=== PATIENT | female | born 1940 | race Caucasian/White ===

== ENCOUNTER 2018-03-18 11:00 | Inpatient (IN) | payer MEDICARE ==
--- NOTE | 2018-03-21 23:03 | HP ---
HISTORY AND PHYSICAL: DATE OF ADMISSION/SURGERY: 04/03/18 SURGEON: Nitza Barraza MD * (DICTATED BY ROME REY) PROCEDURE: Right total hip arthroplasty. CHIEF COMPLAINT: Right hip pain. HISTORY OF PRESENT ILLNESS: Ms. Domingo is a 77-year-old female with complaints of right hip pain. She has failed conservative management and elected to proceed with a right total hip arthroplasty which is scheduled for 04/03/18. PAST MEDICAL HISTORY: 1. High cholesterol. 2. Hypertension. 3. Diabetes, diet controlled. PAST SURGICAL HISTORY: Cataract excision from the left eye. CURRENT MEDICATIONS: 1. Simvastatin 20 mg daily. 2. Ibuprofen as needed. 3. Aspirin 81 mg daily. 4. Torsemide 5 mg half a tab daily. 5. Ramipril 10 mg 2 tabs daily. 6. Vitamin D 1000 units. ALLERGIES: To LIPITOR. FAMILY HISTORY: Diabetes and cancer. SOCIAL HISTORY: She is a 77-year-old female. She lives alone. She does not use drugs or tobacco. She uses occasional alcohol. REVIEW OF SYSTEMS: A complete 14-point review of systems is reviewed with the patient. It was positive for type 2 diabetes, diet controlled. She denies history of DVT, PE, hepatitis, HIV or anesthesia problems. PHYSICAL EXAMINATION GENERAL: She is well developed, well nourished, in no acute distress. VITAL SIGNS: She stands 5 feet 7 inches tall, weighs 235 pounds. Her blood pressure is 150/90, heart rate is 76. HEENT: Normocephalic, atraumatic. NECK: Supple. No palpable lymph nodes. PULMONARY: Lungs are clear to auscultation bilaterally. CARDIO: Regular rate and rhythm. Strong S1 and S2. ABDOMEN: Soft, nontender, nondistended. NEUROLOGIC: She is alert and oriented x3. Cranial nerves II through XII are intact. MUSCULOSKELETAL: Right lower extremity, the skin is intact. There are no open wounds or abrasions. She walks with an antalgic type gait favoring her right hip. She has decreased internal and external rotation of the right hip. She has 2+ dorsalis pedis pulses and intact sensation. Her lower extremity muscle groups strengths are intact at 5/5. ASSESSMENT AND PLAN: Ms. Domingo is a 77-year-old female with complaints of right hip pain. She has failed conservative management and elected to proceed with a right total hip arthroplasty which is scheduled for 04/03/[address] Barraza discussed the risks and benefits of the surgery at today's visit and all of her questions were answered. She will follow up with Dr. Barraza 2 weeks after the surgery. ROME REY [id number]/[facility] #: [id number] [place]
[2018-04-02] MEDS ORDERED: Buffered Lidocaine 0.9% SYRIN* 5 ML/SYR SYRINGE INTRADERM ONE (10:08)
[2018-04-03] MEDS ORDERED: Morphine INJ* 2 MG/ML 1 ML CARPUJECT IV PRN (05:48)
[2018-04-03] MEDS ORDERED: Naloxone* 0.4 MG/ML 1 ML VIAL IV PRN (05:48)
[2018-04-03] MEDS ORDERED: fentaNYL* 50 MCG/ML 2 ML VIAL (100 MCG VIAL) IV PRN (05:48)
[2018-04-03] MEDS ORDERED: Scopolamine 1.5 mg* PATCH TRANSDERM PRN (05:48)
[2018-04-03] MEDS ORDERED: PROCHLORPERAZINE INJ 5 MG/ML 2 ML VIAL IV PRN (05:48)
[2018-04-03] MEDS ORDERED: oxyCODONE/Acetamin 5/325 MG* TAB PO PRN (05:48)
[2018-04-03] MEDS ORDERED: DiMENhydriNATE IV* 50 MG/ML VIAL IV PUSH PRN (05:48)
[2018-04-03] MEDS ORDERED: Famotidine TAB* 20 MG PO ONE (06:00)
[2018-04-03] MEDS ORDERED: Ondansetron INJ* 2 MG/ML VIAL ONE (06:00)
[2018-04-03] MEDS ORDERED: Dexamethasone TAB* 4 MG PO ONE (06:00)
[2018-04-03] MEDS ORDERED: Gabapentin CAP(*) 300 MG PO ONE (06:00)
--- OUTSIDE RECORDS SUMMARY | 2018-04-03 10:30 | XMS REPORT ---
:1940 External Reference #:[id number] Author Organization [facility] [place] Address [address] [address] Phone [phone] Care Team Providers Name Role Phone Jaimie Doshi MD Primary Care Physician Unavailable Payers Type Date Identification Numbers Payment Provider Subscriber Commercial Effective: Policy Number: [facility] (Medicare) Kemi Farrell Jose L 2015 [id number] PayID: [id number] [place] [address] [address] [place] [address] Medigap Part B Effective: Policy Number: [facility] Ins eKmi Farrell Jose L 2012 [id number] Ppo/Epo Expires: 2014 PayID: [id number] [address] [place] [address] Medigap Part B Effective: 2006 Policy Number: Medicare Kemi Farrell Jose L [id number] Expires: 2012 PayID: [id number] [address] [place] [address] Problems Date Description Provider Status Onset: 11/10/2010 Benign essential hypertension Jaimie Doshi M.D. Active Onset: 11/10/2010 Pure hypercholesterolemia Jaimie Doshi M.D. Active Onset: 03/27/2012 Type 2 diabetes mellitus Jaimie Doshi M.D. Active Onset: 11/22/2015 Essential hypertension Jaimie Doshi M.D. Active Onset: 12/24/2016 Localized, primary osteoarthritis Nitza Barraza M.D. Active Onset: 12/24/2016 Localized, primary osteoarthritis of Nitza Madi, M.D. 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[place] Cigarette Use Never Smoked Cigarettes smoked briefly as a teen ETOH Use Denies alcohol use Smoking Patient has never smoked Exercise Type/Frequency Exercises sporadically Allergies, Adverse Reactions, Alerts Date Description Reaction Status Severity Comments 02/05/2011 Lipitor active extreme fatigue 04/28/2010 No Known Drug Allergy inactive Medications Medication Date Status Form Strength Qnty SIG Indications Ordering Provider Simvastatin 02/06/ Active Tablets 20mg 90tab 1 by mouth E78.5 2017 s every day Yoana Doshi Ibuprofen 08/27/ Active Tablets 200mg 90tab 4 tablets 2010 s daily prn Yoana Doshi Aspirin 06/03/ Active Tablets DR 81mg 1 tablet 2009 by mouth Cotton, once daily M.D. Torsemide 04/28/ Active Tablets 5mg 90tab take 1/2 2009 s tablet by Cotton, mouth M.D. daily Ramipril 04/28/ Active Capsules 10mg 180ca 2 by mouth 2009 ps once daily Yoana Doshi Vitamin D / Active Capsules 1000Unit As Unknown 0000 directed Amoxicillin / Active Capsules 500mg take 4 Unknown 0000 pills, 2 g 1 hour before dental or gi procedure Diflunisal / Active Tablets 500mg 1 PO Q 8h Unknown 0000 prn dental pain Diclofenac 04/11/ Hx Gel 1% 100un apply 2-4 M25.561 Jaimie Sodium 2016 - its grams to [place], 02/05/ the knees M.D. 2018 3-4 times a day Triamcinolone 07/24/ Hx Cream 0.5% 45gm apply thin R21 Jaimie Acetonide 2015 - film twice Cotton, 12/17/ daily as M.D. 2017 needed for not more than 2 weeks Mupirocin 07/18/ Hx Ointment 2% 22uni apply thin R21 Ming 2015 - ts film of Karis, ACCOUNT MAINTENANCE REPRESENTATIVE 12/17/ ointment 2016 to the affected area(s) three times daily for 10-14 days Hydrocortisone 07/18/ Hx Cream 2.5% 60gm apply to R2Jadon Ming 2016 - affected Karis ACCOUNT MAINTENANCE REPRESENTATIVE 12/17/ area three 2017 times daily Simvastatin 02/03/ Hx Tablets 20mg 90tab (Not Jaimie 2013 - s Taking)2 Cotton, 02/04/ by mouth M.D. 2017 every day Simvastatin 10/02/ Hx Tablets 10mg 30tab take two 250.00 Jaimie 2012 - s tablets by Cotton, 02/03/ mouth at M.D. 2012 bedtime Aspir-81 04/28/ Hx Tablets DR 81mg 1 tab Jaimie 2010 - daily Cotton, 06/03/ M.D. 2009 Altoprev 03/06/ Hx Tablets ER 60mg 30tab 1 Tablet 250.00 Jaimie 2010 - 24HR s Once Daily [employer], 10/02/ At Bedtime M.D. 2011 Calcium 600 + D / Hx Tablets 600-400mg 1 po bid Unknown 0000 - -Unit 2013 Medications Administered in Office Medication Date Status Form Strength Qnty SIG Indications Ordering Provider Synvisc Or Administered Injection Bre B Synvisc-One Gilberto Sellres, Injection 1 MG PA Synvisc Or Administered Injection Nitza Synvisc-One Gilberto Barraza M.D. Injection 1 MG Synvisc Or Administered Injection Nitza Synvisc-One Gilberto Barraza M.D. Injection 1 MG Depomedrol Administered Injection Nitza 40MG Gilberto Barraza M.D. Depomedrol Administered Injection Gi 80MG 015 Liptak, RPA-C Immunizations CPT Code Status Date Vaccine Lot # [id number] Given 09/17/2017 Influenza Virus Vaccine, Quadrivalent, Split, [id number] Preservative Free 30627 Given 11/22/2015 Pneumococcal Conjugate Vaccine 13 Valent For [id number] Intramuscular Use 99334 Given 10/19/2014 Flu Vaccine Split Virus Preservative Free For [id number] Indiv 3Yr Older Q2037 Given 10/02/2012 Fluvirin Im 3Yrs And Older [id number] Q2035 Given 08/27/2011 Afluria Vaccine [id number] 65091 Given 10/31/2009 Tetanus And Diptheria (Td) For Adult Use Preservative Free 44441 Given 11/01/2008 Influenza Virus 3Yrs & Over 29675 Given 11/01/2008 Influenza Virus 3Yrs & Over 64753 Given 08/20/2007 Pneumonia Vaccine 85707 Given 08/20/2007 Pneumonia Vaccine 89428 Given 08/20/2007 Influenza Virus 3Yrs & Over 81392 Given 08/20/2007 Influenza Virus 3Yrs & Over Vital Signs Date Vital Result Comment 03/21/2018 Height 66 inches 5'6" Weight 229.00 lb Heart Rate 76 /min BP Systolic 150 mmHg BP Diastolic 90 mmHg Respiratory Rate 16 /min Body Temperature 98.6 F Pain Level 6 BMI (Body Mass Index) 37.0 kg/m2 02/28/2018 Weight 229.00 lb Heart Rate 88 /min BP Systolic Sitting 110 mmHg BP Diastolic Sitting 80 mmHg Body Temperature 97.9 F O2 % BldC Oximetry 98 % 02/06/2018 Weight 234.00 lb Heart Rate 98 /min BP Systolic Sitting 125 mmHg BP Diastolic Sitting 95 mmHg Body Temperature 97.9 F O2 % BldC Oximetry 98 % 02/05/2018 Weight 234.00 lb Heart Rate 88 /min BP Systolic 148 mmHg BP Diastolic 92 mmHg Body Temperature 97.8 F 09/17/2017 Weight 235.50 lb Heart Rate 86 /min BP Systolic 130 mmHg BP Diastolic 80 mmHg O2 % BldC Oximetry 97 % 07/09/2017 Weight 237.50 lb Heart Rate 96 /min BP Systolic 126 mmHg BP Diastolic 80 mmHg Body Temperature 98.1 F O2 % BldC Oximetry 97 % 04/11/2017 Weight 239.00 lb Heart Rate 88 /min BP Systolic Sitting 144 mmHg BP Diastolic Sitting 88 mmHg O2 % BldC Oximetry 96 % 03/04/2017 Height 66 inches 5'6" Weight 245.00 lb Heart Rate 99 /min BP Systolic 137 mmHg BP Diastolic 81 mmHg Body Temperature 96.8 F BMI (Body Mass Index) 39.5 kg/m2 02/25/2017 Height 66 inches 5'6" Weight 245.00 lb BP Systolic 142 mmHg BP Diastolic 88 mmHg Body Temperature 98.1 F BMI (Body Mass Index) 39.5 kg/m2 02/18/2017 Height 66 inches 5'6" Weight 245.00 lb Heart Rate 92 /min BP Systolic 146 mmHg BP Diastolic 80 mmHg Body Temperature 98.3 F Pain Level 3 BMI (Body Mass Index) 39.5 kg/m2 02/06/2017 Height 64 inches 5'4" Weight 245.00 lb BP Systolic Sitting 136 mmHg BP Diastolic Sitting 86 mmHg Respiratory Rate 18 /min Pain Level 7 BMI (Body Mass Index) 42.0 kg/m2 12/24/2016 Height 64 inches 5'4" Weight 245.00 lb Heart Rate 95 /min BP Systolic 190 mmHg BP Diastolic 101 mmHg BMI (Body Mass Index) 42.0 kg/m2 12/17/2016 Weight 245.00 lb Heart Rate 76 /min BP Systolic 140 mmHg BP Diastolic 90 mmHg Body Temperature 98.0 F O2 % BldC Oximetry 98 % 07/24/2016 Weight 248.00 lb Heart Rate 90 /min BP Systolic 138 mmHg BP Diastolic 84 mmHg Respiratory Rate 15 /min Body Temperature 98.3 F O2 % BldC Oximetry 97 % 07/18/2016 Weight 249.00 lb Heart Rate 98 /min BP Systolic Sitting 136 mmHg BP Diastolic Sitting 80 mmHg Body Temperature 98.5 F O2 % BldC Oximetry 96 % 06/12/2016 Height 63.75 inches 5'3.75" Weight 245.00 lb Heart Rate 102 /min BP Systolic 128 mmHg BP Diastolic 78 mmHg BP Systolic Sitting 140 mmHg BP Diastolic Sitting 90 mmHg Body Temperature 97.6 F O2 % BldC Oximetry 98 % BMI (Body Mass Index) 42.4 kg/m2 11/22/2015 Height 66 inches 5'6" Weight 247.50 lb Heart Rate 103 /min BP Systolic Sitting 126 mmHg BP Diastolic Sitting 78 mmHg Body Temperature 97.3 F O2 % BldC Oximetry 98 % BMI (Body Mass Index) 39.9 kg/m2 01/24/2015 Height 66 inches 5'6" Weight 256.00 lb Pain Level 5 BMI (Body Mass Index) 41.3 kg/m2 11/22/2014 Height 66 inches 5'6" Weight 256.00 lb Heart Rate 85 /min BP Systolic 150 mmHg BP Diastolic 80 mmHg BMI (Body Mass Index) 41.3 kg/m2 10/19/2014 Height 63.25 inches 5'3.25" Weight 253.50 lb Heart Rate 99 /min BP Systolic Sitting 126 mmHg BP Diastolic Sitting 64 mmHg Body Temperature 97.8 F O2 % BldC Oximetry 96 % BMI (Body Mass Index) 44.5 kg/m2 04/13/2014 Height 63.25 inches 5'3.25" Weight 251.00 lb Heart Rate 80 /min BP Systolic Sitting 124 mmHg BP Diastolic Sitting 74 mmHg Body Temperature 98.4 F BMI (Body Mass Index) 44.1 kg/m2 09/15/2013 Weight 244.00 lb Heart Rate 82 /min BP Systolic Sitting 132 mmHg BP Diastolic Sitting 80 mmHg 03/16/2013 Height 63.25 inches 5'3.25" Weight 250.00 lb Heart Rate 82 /min BP Systolic Sitting 134 mmHg BP Diastolic Sitting 84 mmHg BMI (Body Mass Index) 43.9 kg/m2 10/02/2012 Height 64.25 inches 5'4.25" Weight 246.00 lb Heart Rate 80 /min BP Systolic Sitting 134 mmHg BP Diastolic Sitting 80 mmHg BMI (Body Mass Index) 41.9 kg/m2 05/29/2012 Height 64.25 inches 5'4.25" Weight 244.00 lb Heart Rate 84 /min BP Systolic Sitting 146 mmHg 132/84 BP Diastolic Sitting 70 mmHg 132/84 BMI (Body Mass Index) 41.6 kg/m2 03/27/2012 Height 64.25 inches 5'4.25" Weight 251.00 lb Heart Rate 76 /min BP Systolic Sitting 124 mmHg BP Diastolic Sitting 66 mmHg BMI (Body Mass Index) 42.7 kg/m2 03/03/2012 Height 64.25 inches 5'4.25" Weight 257.00 lb Heart Rate 74 /min BP Systolic Sitting 134 mmHg BP Diastolic Sitting 80 mmHg BMI (Body Mass Index) 43.8 kg/m2 08/27/2011 Height 64.25 inches 5'4.25" Weight 249.00 lb Heart Rate 72 /min BP Systolic Sitting 132 mmHg BP Diastolic Sitting 80 mmHg BMI (Body Mass Index) 42.4 kg/m2 05/07/2011 Height 64.25 inches 5'4.25" Weight 244.00 lb Heart Rate 72 /min BP Systolic Sitting 120 mmHg BP Diastolic Sitting 76 mmHg BMI (Body Mass Index) 41.6 kg/m2 02/05/2011 Weight 266.50 lb Heart Rate 84 /min BP Systolic 130 mmHg large cuff BP Diastolic 82 mmHg large cuff 06/05/2010 Weight 266.00 lb Heart Rate 68 /min BP Systolic 130 mmHg BP Diastolic 90 mmHg 05/01/2010 Weight 261.00 lb Heart Rate 88 /min BP Systolic 134 mmHg BP Diastolic 82 mmHg Results Test Date Test Result H/L Range Note Laboratory test finding 02/06/2018 Hemoglobin A1c 6.6 5-7 Lipid Profile (Trig/Chol/HDL) 09/12/2017 Triglycerides 119 mg/dL 1 Cholesterol 244 mg/dL 2 HDL Cholesterol 50.9 mg/dL 3 LDL Cholesterol 169 mg/dL 4 Comp Metabolic Panel 09/12/2017 Sodium 137 mmol/L 133-145 Potassium 4.7 mmol/L 3.5-5.0 Chloride 103 mmol/L 101-111 Co2 Carbon Dioxide 29 mmol/L 22-32 Anion Gap 5 mmol/L 2-11 Glucose 101 mg/dL High 70-100 Blood Urea Nitrogen 17 mg/dL 6-24 Creatinine 0.92 mg/dL 0.51-0.95 BUN/Creatinine Ratio 18.5 8-20 Calcium 10.2 mg/dL 8.6-10.3 Total Protein 6.9 g/dL 6.4-8.9 Albumin 4.0 g/dL 3.2-5.2 Globulin 2.9 g/dL 2-4 Albumin/Globulin Ratio 1.4 1-3 Total Bilirubin 1.30 mg/dL High 0.2-1.0 Alkaline Phosphatase 103 U/L 34-104 Alt 11 U/L 7-52 Ast 14 U/L 13-39 Egfr Non- 59.5 >60 Egfr 76.5 >60 5 Urine Microalbumin Random 09/12/2017 Ur Microalbumin (mg/L) 34.4 mg/L Urine Creatinine 98.60 mg/dL Urine Microalbumin/Creatinine 34.8 ug/mg High <31 CBC Auto Diff 09/12/2017 White Blood Count 8.3 10^3/uL 3.5-10.8 Red Blood Count 4.79 10^6/uL 4.0-5.4 Hemoglobin 13.0 g/dL 12.0-16.0 Hematocrit 40 % 35-47 Mean Corpuscular Volume 84 fL 80-97 Mean Corpuscular Hemoglobin 27 pg 27-31 Mean Corpuscular HGB Conc 32 g/dL 31-36 Red Cell Distribution Width 15 % 10.5-15 Platelet Count 290 10^3/uL 150-450 Mean Platelet Volume 10 um3 7.4-10.4 Abs Neutrophils 5.1 10^3/uL 1.5-7.7 Abs Lymphocytes 2.1 10^3/uL 1.0-4.8 Abs Monocytes 0.6 10^3/uL 0-0.8 Abs Eosinophils 0.3 10^3/uL 0-0.6 Abs Basophils 0.1 10^3/uL 0-0.2 Abs Nucleated RBC 0 10^3/uL Granulocyte % 61.8 % 38-83 Lymphocyte % 25.7 % 25-47 Monocyte % 7.5 % 1-9 Eosinophil % 4.1 % 0-6 Basophil % 0.9 % 0-2 Nucleated Red Blood Cells % 0 Laboratory test finding 07/09/2017 Hemoglobin A1c 6.2 5-7 Lipid Profile (Trig/Chol/HDL) 12/03/2016 Triglycerides 125 mg/dL 6 Cholesterol 229 mg/dL 7 HDL Cholesterol 50.2 mg/dL 8 LDL Cholesterol 154 mg/dL 9 Comp Metabolic Panel 12/03/2016 Sodium 140 mmol/L 133-145 Potassium 4.4 mmol/L 3.5-5.0 Chloride 105 mmol/L 101-111 Co2 Carbon Dioxide 30 mmol/L 22-32 Anion Gap 5 mmol/L 2-11 Glucose 99 mg/dL 70-100 Blood Urea Nitrogen 21 mg/dL 6-24 Creatinine 1.01 mg/dL High 0.51-0.95 BUN/Creatinine Ratio 20.8 High 8-20 Calcium 10.4 mg/dL High 8.6-10.3 Total Protein 6.9 g/dL 6.4-8.9 Albumin 4.1 g/dL 3.2-5.2 Globulin 2.8 g/dL 2-4 Albumin/Globulin Ratio 1.5 1-3 Total Bilirubin 1.10 mg/dL High 0.2-1.0 Alkaline Phosphatase 101 U/L 34-104 Alt 12 U/L 7-52 Ast 13 U/L 13-39 Egfr Non- 53.4 >60 Egfr 68.7 >60 10 Laboratory test 12/03/2016 Hemoglobin A1c 6.3 % High Less than 6.0 11 finding (Glyco HGB) Urine Microalbumin 12/03/2016 Urine Creatinine 68.36 mg/dL Random Ur Microalbumin (mg/L) 50.8 mg/L Urine Microalbumin/Creatinine 74.3 ug/mg High <31 Comp Metabolic Panel 06/06/2016 Sodium 138 mmol/L 133-145 Potassium 4.0 mmol/L 3.5-5.0 Chloride 104 mmol/L 101-111 Co2 Carbon Dioxide 29 mmol/L 22-32 Anion Gap 5 mmol/L 2-11 Glucose 97 mg/dL 70-100 Blood Urea Nitrogen 18 mg/dL 6-24 Creatinine 1.01 mg/dL High 0.51-0.95 BUN/Creatinine Ratio 17.8 8-20 Calcium 9.5 mg/dL 8.6-10.3 Total Protein 6.6 g/dL 6.4-8.9 Albumin 3.8 g/dL 3.2-5.2 Globulin 2.8 g/dL 2-4 Albumin/Globulin Ratio 1.4 1-3 Total Bilirubin 1.20 mg/dL High 0.2-1.0 Alkaline Phosphatase 115 U/L High 34-104 Alt 11 U/L 7-52 Ast 13 U/L 13-39 Egfr Non- 53.6 >60 Egfr 68.9 >60 12 Laboratory test 06/06/2016 Hemoglobin A1c (Glyco 6.3 % High Less than 6.0 13 finding HGB) Lipid Profile 11/16/2015 Triglycerides 106 mg/dL 14 (Trig/Chol/HDL) Cholesterol 161 mg/dL 15 HDL Cholesterol 45.4 mg/dL 16 LDL Cholesterol 94 mg/dL 17 Comp Metabolic Panel 11/16/2015 Sodium 137 mmol/L 133-145 Potassium 4.0 mmol/L 3.5-5.0 Chloride 102 mmol/L 101-111 Co2 Carbon Dioxide 27 mmol/L 22-32 Anion Gap 8 mmol/L 2-11 Glucose 94 mg/dL 70-100 Blood Urea Nitrogen 20 mg/dL 6-24 Creatinine 0.99 mg/dL High 0.51-0.95 BUN/Creatinine Ratio 20.2 High 8-20 Calcium 10.1 mg/dL 8.6-10.3 Total Protein 7.1 g/dL 6.4-8.9 Albumin 4.2 g/dL 3.2-5.2 Globulin 2.9 g/dL 2-4 Albumin/Globulin Ratio 1.4 1-3 Total Bilirubin 1.40 mg/dL High 0.2-1.0 Alkaline Phosphatase 109 U/L High 34-104 Alt 12 U/L 7-52 Ast 15 U/L 13-39 Egfr Non- 54.8 >60 Egfr 70.5 >60 18 Laboratory test 11/16/2015 Hemoglobin A1c (Glyco 6.2 % High Less than 6.0 19 finding HGB) Urine Microalbumin 11/16/2015 Ur Microalbumin 24.0 mg/L Random (mg/L) Urine Creatinine 129.09 mg/dL Urine Microalbumin/Creatinine 18.5 ug/mg <31 Comp Metabolic Panel 10/06/2014 Sodium 137 mmol/L 133-145 20 Potassium 3.7 mmol/L 3.5-5.0 20, 21 Chloride 104 mmol/L 101-111 20 Co2 Carbon Dioxide 27 mmol/L 22-32 20 Anion Gap 6 mmol/L 2-11 20 Glucose 97 mg/dL 70-100 20 Blood Urea Nitrogen 23 mg/dL 6-24 20 Creatinine 0.99 mg/dL High 0.51-0.95 20 BUN/Creatinine Ratio 23.2 High 8-20 20 Calcium 9.9 mg/dL 8.6-10.3 20 Total Protein 7.3 g/dL 6.4-8.9 20 Albumin 4.1 g/dL 3.2-5.2 20 Globulin 3.2 g/dL 2-4 20 Albumin/Globulin Ratio 1.3 1-3 20 Total Bilirubin 1.20 mg/dL High 0.2-1.0 20 Alkaline Phosphatase 105 U/L High 34-104 20 Alt 11 U/L 7-52 20 Ast 16 U/L 13-39 20 Egfr Non- 55.0 >60 20 Egfr 70.7 >60 20, 22 Lipid Profile (Trig/Chol/HDL) 10/06/2014 Triglycerides 103 mg/dL 20, 23 Cholesterol 151 mg/dL 20, 24 HDL Cholesterol 43.2 mg/dL 20, 25 LDL Cholesterol 87 mg/dL 20, 26 Laboratory test 10/06/2014 TSH (Thyroid 2.15 IU/mL 0.34-5.60 20, 27 finding Stimulating Horm) Hemoglobin A1c 6.5 % High Less than 6.0 20, 28 Urine Microalbumin Random 10/06/2014 Ur Microalbumin (mg/L) 18.0 mg/L Urine Creatinine 136.65 mg/dL Urine Microalbumin/Creatinine 13.1 Less Than 31 Laboratory test finding 04/13/2014 Hemoglobin A1c 6.1 5-7 Laboratory test finding 09/09/2013 Hemoglobin A1c 6.4 % High Less than 6.0 29 Comp Metabolic Panel 09/09/2013 Sodium 138 mmol/L 133-145 Potassium 4.0 mmol/L 3.5-5.0 Chloride 104 mmol/L 101-111 Co2 Carbon Dioxide 29.0 mmol/L 22-32 Anion Gap 5.0 mmol/L 2-11 Glucose 111 mg/dL High 70-100 Blood Urea Nitrogen 22 mg/dL 6-24 Creatinine 1.10 mg/dL 0.50-1.40 BUN/Creatinine Ratio 20.0 8-20 Calcium 10.5 mg/dL High 8.1-9.9 Total Protein 6.3 g/dL 6.2-8.1 Albumin 4.1 g/dL 3.2-5.2 Globulin 2.2 g/dL 2-4 Albumin/Globulin Ratio 1.9 1-3 Total Bilirubin 1.5 mg/dL 0.4-1.5 Alkaline Phosphatase 109 U/L 30-110 Alt 15 U/L 14-54 Ast 20 U/L 12-42 Egfr Non- 49.0 >60 Egfr 63.0 >60 30 Urine Microalbumin Random 09/09/2013 Ur Microalbumin (mg/L) 18.0 mg/L 31 Urine Creatinine 170.2 mg/dL Urine Microalbumin/Creatinine 10.6 Less Than 31 Lipid Profile (Trig/Chol/HDL) 09/09/2013 Triglycerides 97 mg/dL 40-200 Cholesterol 168 mg/dL Less than 200 HDL Cholesterol 52 mg/dL 40-60 32 Cholesterol/HDL Ratio 3.2 Average 1-4.44 LDL Cholesterol 96.6 Less Than 100 33 Pthi 09/09/2013 PTH Intact 7.4 pmol/L 1.3-9.0 Calcium (PTH Intact) 10.4 mg/dL High 8.1-9.9 Laboratory test finding 03/11/2013 Hemoglobin A1c 6.4 % High Less than 34 6.0 Laboratory test finding 03/11/2013 TSH (Thyroid 2.13 miu/mL 0.34-5.60 Stimulating Horm) Protein Electrophoresis 03/11/2013 Albumin (Pep) 3.57 g/dL 3.0-4.35 Serum Alpha 1 Globulins 0.20 g/dL 0.09-0.33 Alpha 2 Globulin 0.91 g/dL 0.59-1.18 Beta Globulin 0.78 g/dL 0.68-1.02 Gamma Globulin 1.45 g/dL 0.76-1.60 Albumin % (Pep) 51.7 % 46-63 Alpha 1 Globulins % 2.9 % 1.2-5.3 Alpha 2 Globulin % 13.2 % 9-17 Beta Globulin % 11.3 % 10-16 Gamma Globulin % 21.0 % 12-22 Albumin/Globulin Ratio 1.1 0.9-2.0 Total Protein (Pep) 6.9 g/dL 6.2-8.1 Spep Comments (SEE NOTE) 35 Pthi 03/11/2013 PTH Intact 7.3 pmol/L 1.3-9.0 Calcium (PTH Intact) 10.2 mg/dL High 8.1-9.9 Lipid Profile (Trig/Chol/HDL) 01/14/2013 Triglycerides 96 mg/dL 40-200 Cholesterol 170 mg/dL Less than 200 HDL Cholesterol 49 mg/dL 40-60 36 Cholesterol/HDL Ratio 3.5 Average 1-4.44 LDL Cholesterol 101.8 mg/dL High Less Than 100 37 Comp Metabolic Panel 01/14/2013 Sodium 140 mmol/L 133-145 Potassium 4.6 mmol/L 3.5-5.0 Chloride 102 mmol/L 101-111 Co2 Carbon Dioxide 29.0 mmol/L 22-32 Anion Gap 9.0 mmol/L 2-11 Glucose 105 mg/dL High 70-100 Blood Urea Nitrogen 23 mg/dL 6-24 Creatinine 1.00 mg/dL 0.50-1.40 BUN/Creatinine Ratio 23.0 High 8-20 Calcium 10.7 mg/dL High 8.1-9.9 Total Protein 6.7 g/dL 6.2-8.1 Albumin 4.0 g/dL 3.2-5.2 Globulin 2.7 g/dL 2-4 Albumin/Globulin Ratio 1.5 1-3 Total Bilirubin 1.2 mg/dL 0.4-1.5 Alkaline Phosphatase 110 U/L 30-110 Alt 36 U/L 14-54 Ast 28 U/L 12-42 Egfr Non- 54.7 >60 Egfr 70.3 >60 38 Urine Microalbumin Random 09/30/2012 Ur Microalbumin (Mg/L) 12.0 mg/L 39 Urine Creatinine 78.5 mg/dL Urine Microalbumin/Creatinine 15.3 UG/MG Less Than 31 Lipid Profile (Trig/Chol/HDL) 09/30/2012 Triglycerides 117 mg/dL 40-200 Cholesterol 173 mg/dL Less than 200 HDL Cholesterol 47 mg/dL 40-60 40 Cholesterol/HDL Ratio 3.7 AVERAGE 1-4.44 LDL Cholesterol 102.6 mg/dL High Less Than 100 41 Comp Metabolic Panel 09/30/2012 Sodium 137 mmol/L 133-145 Potassium 4.7 mmol/L 3.5-5.0 Chloride 106 mmol/L 101-111 Co2 Carbon Dioxide 28.0 mmol/L 22-32 Anion Gap 3.0 mmol/L 2-11 Glucose 100 mg/dL 70-100 Blood Urea Nitrogen 21 mg/dL 6-24 Creatinine 1.00 mg/dL 0.50-1.40 BUN/Creatinine Ratio 21.0 High 8-20 Calcium 10.2 mg/dL High 8.1-9.9 Total Protein 6.1 GM/DL Low 6.2-8.1 Albumin 3.8 GM/DL 3.2-5.2 Globulin 2.3 GM/DL 2-4 Albumin/Globulin Ratio 1.7 1-3 Total Bilirubin 1.2 mg/dL High 0.1-1.0 42 Alkaline Phosphatase 108 U/L 30-110 Alt 16 U/L 14-54 Ast 18 U/L 12-42 Egfr Non- 54.8 >60 Egfr 70.5 >60 43 Laboratory test finding 09/30/2012 Hemoglobin A1c 6.5 % High Less than 6.0 44 Order 05/29/2012 A1c 6.4 Laboratory test finding 03/03/2012 Hemoglobin A1c 6.7 % High Less Than 6.0 45 Comp Metabolic Panel 03/03/2012 Sodium 138 mmol/L 135-145 Potassium 4.4 mmol/L 3.5-5.0 Chloride 104 mmol/L 101-111 Co2 (Carbon Dioxide) 29.0 mmol/L 22-32 Anion Gap 5.0 mmol/L 2-11 46 Glucose 91 mg/dL 70-100 BUN 23 mg/dL 6-24 Creatinine 1.0 mg/dL 0.50-1.40 One Over Creatinine 1.00 BUN/Creatinine Ratio 23.0 High 8-20 Calcium 9.6 mg/dL 8.1-9.9 Total Protein 6.5 GM/DL 6.2-8.1 Albumin 3.9 GM/DL 3.2-5.2 Globulin 2.6 GM/DL 2-4 Albumin/Globulin Ratio 1.5 1-3 Bilirubin Total 1.2 mg/dL 0.4-1.5 47 Alkaline Phosphatase 108 U/L 30-110 Alt (SGPT) 17 U/L 14-54 Ast (Sgot) 15 U/L 12-42 eGFR Non- 54.8 > 60 eGFR 70.5 > 60 48 Vitamin D, 25 Hydroxy 10/16/2011 25-Hydroxy Vitamin D2 <4.0 ng/mL () 25-Hydroxy Vitamin D3 35 ng/mL () 25-Hydroxy Vitamin D Total 35 ng/mL () 49 PTH Intact, Inc Total Calcium 10/16/2011 PTH Intact 7.2 PMOL/L 1.3-9.3 Calcium For Pthi 10.3 mg/dL High 8.1-9.9 50 Comp Metabolic Panel 10/16/2011 Sodium 137 mmol/L 135-145 Potassium 4.4 mmol/L 3.5-5.0 Chloride 102 mmol/L 101-111 Co2 (Carbon Dioxide) 27.0 mmol/L 22-32 Anion Gap 8.0 mmol/L 2-11 51 Glucose 105 mg/dL High 70-100 BUN 19 mg/dL 6-24 Creatinine 1.0 mg/dL 0.50-1.40 One Over Creatinine 1.00 BUN/Creatinine Ratio 19.0 8-20 Calcium 10.5 mg/dL High 8.1-9.9 Total Protein 6.9 GM/DL 6.2-8.1 Albumin 3.9 GM/DL 3.2-5.2 Globulin 3.0 GM/DL 2-4 Albumin/Globulin Ratio 1.3 1-3 Bilirubin Total 1.4 mg/dL 0.4-1.5 52 Alkaline Phosphatase 108 U/L 30-110 Alt (SGPT) 16 U/L 14-54 Ast (Sgot) 19 U/L 12-42 eGFR Non- 54.8 > 60 eGFR 70.5 > 60 53 Lipid Profile (Trig/Chol/HDL) 10/16/2011 Triglyceride 91 mg/dL 40-200 Cholesterol 183 mg/dL Less Than 200 54 High Density Lipoprotein 53 mg/dL 40-60 55 Cholesterol/HDL Ratio 3.45 AVERAGE 1-4.44 Low Density Lipoprotein 112 mg/dL High Less Than 100 56 Vitamin D, 25 Hydroxy 05/01/2011 25-Hydroxy Vitamin D2 <4.0 ng/mL () 25-Hydroxy Vitamin D3 35 ng/mL () 25-Hydroxy Vitamin D Total 35 ng/mL () 57 Laboratory test finding 05/01/2011 Hemoglobin A1c 6.4 % High Less Than 6.0 58 PTH Intact, Inc Total 05/01/2011 PTH Intact 7.2 PMOL/L 1.3-9.3 Calcium Calcium For Pthi 10.4 mg/dL High 8.1-9.9 59 Lipid Profile (Trig/Chol/HDL) 05/01/2011 Triglyceride 95 mg/dL 40-200 Cholesterol 154 mg/dL Less Than 200 60 High Density Lipoprotein 47 mg/dL 40-60 61 Cholesterol/HDL Ratio 3.28 AVERAGE 1-4.44 Low Density Lipoprotein 88 mg/dL Less Than 100 62 Comp Metabolic Panel 05/01/2011 Sodium 141 mmol/L 135-145 Potassium 4.8 mmol/L 3.5-5.0 Chloride 106 mmol/L 101-111 Co2 (Carbon Dioxide) 28.0 mmol/L 22-32 Anion Gap 7.0 mmol/L 2-11 63 Glucose 107 mg/dL High 70-100 BUN 19 mg/dL 6-24 Creatinine 1.00 mg/dL 0.50-1.40 One Over Creatinine 1.00 BUN/Creatinine Ratio 19.0 8-20 Calcium 10.3 mg/dL High 8.1-9.9 Total Protein 6.5 GM/DL 6.2-8.1 Albumin 3.9 GM/DL 3.2-5.2 Globulin 2.6 GM/DL 2-4 Albumin/Globulin Ratio 1.5 1-3 Bilirubin Total 1.5 mg/dL 0.4-1.5 64 Alkaline Phosphatase 98 U/L 30-110 Alt (SGPT) 14 U/L 14-54 Ast (Sgot) 17 U/L 12-42 eGFR Non- 55.0 > 60 eGFR 70.7 > 60 65 Lipid Profile (Trig/Chol/HDL) 11/07/2010 Triglyceride 128 mg/dL 40-200 Cholesterol 173 mg/dL Less Than 200 66 High Density Lipoprotein 42 mg/dL 40-60 67 Cholesterol/HDL Ratio 4.12 AVERAGE 1-4.44 Low Density Lipoprotein 105 mg/dL High Less Than 100 68 Comp Metabolic Panel 11/07/2010 Sodium 139 mmol/L 135-145 Potassium 4.8 mmol/L 3.5-5.0 Chloride 105 mmol/L 101-111 Co2 (Carbon Dioxide) 29.0 mmol/L 22-32 Anion Gap 5.0 mmol/L 2-11 69 Glucose 102 mg/dL High 70-100 BUN 18 mg/dL 6-24 Creatinine 1.00 mg/dL 0.50-1.40 One Over Creatinine 1.00 BUN/Creatinine Ratio 18.0 8-20 Calcium 10.6 mg/dL High 8.1-9.9 Total Protein 6.9 GM/DL 6.2-8.1 Albumin 4.0 GM/DL 3.2-5.2 Globulin 2.9 GM/DL 2-4 Albumin/Globulin Ratio 1.4 1-3 Bilirubin Total 1.3 mg/dL 0.4-1.5 70 Alkaline Phosphatase 107 U/L 30-110 Alt (SGPT) 16 U/L 14-54 Ast (Sgot) 17 U/L 12-42 eGFR Non- 58.4 > 60 eGFR 70.7 > 60 71 Basic Metabolic Panel 05/25/2010 Sodium 140 mmol/L 135-145 Potassium 4.5 mmol/L 3.5-5.0 Chloride 106 mmol/L 101-111 Co2 (Carbon Dioxide) 30.0 mmol/L 22-32 Anion Gap 4.0 mmol/L 2-11 72 Glucose 86 mg/dL 70-100 73 BUN 25 mg/dL High 6-24 Creatinine 0.99 mg/dL 0.50-1.40 One Over Creatinine 1.00 BUN/Creatinine Ratio 25.3 High 8-20 Calcium 10.1 mg/dL High 8.1-9.9 74 eGFR Non- 59.3 > 60 eGFR 71.7 > 60 75 1 Desirable: <150 Borderline High: 150-199 High: 200-499 Very High: >500 2 Desirable: <200 Borderline High: 200-239 High: >239 3 Low: <40 Desirable: 40-60 High: >60 4 Desirable: <100 Near Optimal: 100-129 Borderline High: 130-159 High: 160-189 Very High: >189 5 Because ethnic data is not always readily available, this report includes an eGFR for both -Americans and non- Americans. The National Kidney Disease Education Program (NKDEP) does not endorse the use of the MDRD equation for patients that are not between the ages of 18 and 70, are , have extremes of body size, muscle mass, or nutritional status, or are non- or non-. According to the National Kidney Foundation, irrespective of diagnosis, the stage of the disease is based on the level of kidney function: Stage Description GFR(mL/min/1.73 m(2)) 1 Kidney damage with normal or decreased GFR 90 2 Kidney damage with mild decrease in GFR 60-89 3 Moderate decrease in GFR 30-59 4 Severe decrease in GFR 15-29 5 Kidney failure <15 (or dialysis) 6 Desirable <150 Borderline high 150-199 High 200-499 Very High >500 7 Desirable <200 Borderline high 200-239 High >239 8 Low <40 Desirable: 40-60 High: >60 9 Desirable: <100 mg/dL Near Optimal: 100-129 mg/dL Borderline High: 130-159 mg/dL High: 160-189 mg/dL Very High: >189 mg/dL 10 Because ethnic data is not always readily available, this report includes an eGFR for both -Americans and non- Americans. The National Kidney Disease Education Program (NKDEP) does not endorse the use of the MDRD equation for patients that are not between the ages of 18 and 70, are , have extremes of body size, muscle mass, or nutritional status, or are non- or non-. According to the National Kidney Foundation, irrespective of diagnosis, the stage of the disease is based on the level of kidney function: Stage Description GFR(mL/min/1.73 m(2)) 1 Kidney damage with normal or decreased GFR 90 2 Kidney damage with mild decrease in GFR 60-89 3 Moderate decrease in GFR 30-59 4 Severe decrease in GFR 15-29 5 Kidney failure <15 (or dialysis) 11 Therapeutic target for the treatment of diabetes Mellitus patients is <7% HBA1C, and in selective patients <6.0%.Please refer to [place] [employer] Diabetic care guidelines for further information. 12 Because ethnic data is not always readily available, this report includes an eGFR for both -Americans and non- Americans. The National Kidney Disease Education Program (NKDEP) does not endorse the use of the MDRD equation for patients that are not between the ages of 18 and 70, are , have extremes of body size, muscle mass, or nutritional status, or are non- or non-. According to the National Kidney Foundation, irrespective of diagnosis, the stage of the disease is based on the level of kidney function: Stage Description GFR(mL/min/1.73 m(2)) 1 Kidney damage with normal or decreased GFR 90 2 Kidney damage with mild decrease in GFR 60-89 3 Moderate decrease in GFR 30-59 4 Severe decrease in GFR 15-29 5 Kidney failure <15 (or dialysis) 13 Therapeutic target for the treatment of diabetes Mellitus patients is <7% HBA1C, and in selective patients <6.0%.Please refer to [place] [employer] Diabetic care guidelines for further information. 14 Desirable <150 Borderline high 150-199 High 200-499 Very High >500 15 Desirable <200 Borderline high 200-239 High >239 16 Low <40 Desirable: 40-60 High: >60 17 Desirable: <100 mg/dL Near Optimal: 100-129 mg/dL Borderline High: 130-159 mg/dL High: 160-189 mg/dL Very High: >189 mg/dL 18 Because ethnic data is not always readily available, this report includes an eGFR for both -Americans and non- Americans. The National Kidney Disease Education Program (NKDEP) does not endorse the use of the MDRD equation for patients that are not between the ages of 18 and 70, are , have extremes of body size, muscle mass, or nutritional status, or are non- or non-. According to the National Kidney Foundation, irrespective of diagnosis, the stage of the disease is based on the level of kidney function: Stage Description GFR(mL/min/1.73 m(2)) 1 Kidney damage with normal or decreased GFR 90 2 Kidney damage with mild decrease in GFR 60-89 3 Moderate decrease in GFR 30-59 4 Severe decrease in GFR 15-29 5 Kidney failure <15 (or dialysis) 19 Therapeutic target for the treatment of diabetes Mellitus patients is <7% HBA1C, and in selective patients <6.0%.Please refer to [place] [employer] Diabetic care guidelines for further information. 20 FASTING 21 Potassium reference range changed effective 09/19/14 22 Because ethnic data is not always readily available, this report includes an eGFR for both -Americans and non- Americans. The National Kidney Disease Education Program (NKDEP) does not endorse the use of the MDRD equation for patients that are not between the ages of 18 and 70, are , have extremes of body size, muscle mass, or nutritional status, or are non- or non-. According to the National Kidney Foundation, irrespective of diagnosis, the stage of the disease is based on the level of kidney function: Stage Description GFR(mL/min/1.73 m(2)) 1 Kidney damage with normal or decreased GFR 90 2 Kidney damage with mild decrease in GFR 60-89 3 Moderate decrease in GFR 30-59 4 Severe decrease in GFR 15-29 5 Kidney failure <15 (or dialysis) 23 Desirable <150 Borderline high 150-199 High 200-499 Very High >500 24 Desirable <200 Borderline high 200-239 High >239 25 Low <40 Desirable: 40-60 High: >60 26 Desirable <100 Near Optimal 100-129 Borderline high 130-159 High 160-189 Very High >189 27 FASTING 28 Therapeutic target for the treatment of diabetes Mellitus patients is <7% HBA1C, and in selective patients <6.0%.Please refer to [place] [employer] Diabetic care guidelines for further information. 29 Therapeutic target for the treatment of diabetes Mellitus patients is <7% HBA1C, and in selective patients <6.0%.Please refer to [place] [employer] Diabetic care guidelines for further information. 30 Because ethnic data is not always readily available, this report includes an eGFR for both -Americans and non- Americans. The National Kidney Disease Education Program (NKDEP) does not endorse the use of the MDRD equation for patients that are not between the ages of 18 and 70, are , have extremes of body size, muscle mass, or nutritional status, or are non- or non-. According to the National Kidney Foundation, irrespective of diagnosis, the stage of the disease is based on the level of kidney function: Stage Description GFR(mL/min/1.73 m(2)) 1 Kidney damage with normal or decreased GFR 90 2 Kidney damage with mild decrease in GFR 60-89 3 Moderate decrease in GFR 30-59 4 Severe decrease in GFR 15-29 5 Kidney failure <15 (or dialysis) 31 Microalbuminuria in a random sample is defined as: Microalbumin/Creatinine ratio of 30-299 ug/mg. 32 HDL Interpretation: Undesirable: High Risk: Less than 40 mg/dL Desirable: Low Risk: Greater than 60 mg/dL 33 LDL Interpretation: Low Risk Optimal Level: LDL Less than 100 mg/dL Near or Above Optimal: LDL 100-129 mg/dL Borderline High Risk: LDL 130-159 mg/dL High Risk: LDL 160-189 mg/dL Very High Risk: LDL Greater than 189 mg/dL 34 Therapeutic target for the treatment of diabetes Mellitus patients is <7% HBA1C, and in selective patients <6.0%.Please refer to [place] [employer] Diabetic care guidelines for further information. 35 Normal serum electrophoretic pattern. 36 HDL Interpretation: Undesirable: High Risk: Less than 40 MG/DL Desirable: Low Risk: Greater than 60 MG/DL 37 LDL Interpretation: Low Risk Optimal Level: LDL Less than 100 MG/DL Near or Above Optimal: LDL 100-129 MG/DL Borderline High Risk: LDL 130-159 MG/DL High Risk: LDL 160-189 MG/DL Very High Risk: LDL Greater than 189 MG/DL 38 Because ethnic data is not always readily available, this report includes an eGFR for both -Americans and non- Americans. The National Kidney Disease Education Program (NKDEP) does not endorse the use of the MDRD equation for patients that are not between the ages of 18 and 70, are , have extremes of body size, muscle mass, or nutritional status, or are non- or non-. According to the National Kidney Foundation, irrespective of diagnosis, the stage of the disease is based on the level of kidney function: Stage Description GFR(mL/min/1.73 m(2)) 1 Kidney damage with normal or decreased GFR 90 2 Kidney damage with mild decrease in GFR 60-89 3 Moderate decrease in GFR 30-59 4 Severe decrease in GFR 15-29 5 Kidney failure <15 (or dialysis) 39 Microalbuminuria in a random sample is defined as: Microalbumin/Creatinine ratio of 30-299 ug/mg. 40 HDL Interpretation: Undesirable: High Risk: Less than 40 MG/DL Desirable: Low Risk: Greater than 60 MG/DL 41 LDL Interpretation: Low Risk Optimal Level: LDL Less than 100 MG/DL Near or Above Optimal: LDL 100-129 MG/DL Borderline High Risk: LDL 130-159 MG/DL High Risk: LDL 160-189 MG/DL Very High Risk: LDL Greater than 189 MG/DL 42 A metabolite of Naproxen, O-desmethylnaproxen, has been shown to interfere with the Jendrassik-Hopkins method for measuring total bilirubin. Samples from patients who have taken Naproxen have shown spurious elevation in total bilirubin levels. 43 Because ethnic data is not always readily available, this report includes an eGFR for both -Americans and non- Americans. The National Kidney Disease Education Program (NKDEP) does not endorse the use of the MDRD equation for patients that are not between the ages of 18 and 70, are , have extremes of body size, muscle mass, or nutritional status, or are non- or non-. According to the National Kidney Foundation, irrespective of diagnosis, the stage of the disease is based on the level of kidney function: Stage Description GFR(mL/min/1.73 m(2)) 1 Kidney damage with normal or decreased GFR 90 2 Kidney damage with mild decrease in GFR 60-89 3 Moderate decrease in GFR 30-59 4 Severe decrease in GFR 15-29 5 Kidney failure <15 (or dialysis) 44 Therapeutic target for the treatment of diabetes Mellitus patients is <7% HBA1C, and in selective patients <6.0%.Please refer to [place] [employer] Diabetic care guidelines for further information. 45 THERAPEUTIC TARGET FOR THE TREATMENT OF DIABETES MELLITUS PATIENTS IS <7% HBA1C, AND IN SELECTIVE PATIENTS <6.0%. PLEASE REFER TO [employer] DIABETIC CARE GUIDELINES FOR FURTHER INFORMATION. 46 Anion gap measurement may be of limited value in the presence of any alkalosis, especially in a combined acid base disorder. . 47 A metabolite of Naproxen, O-desmethylnaproxen, has been shown to interfere with the Jendrassik-Hopkins method for measuring total bilirubin. Samples from patients who have taken Naproxen have shown spurious elevation in total bilirubin levels. 48 Because ethnic data is not always readily available, this report includes an eGFR for both -Americans and non- Americans. The National Kidney Disease Education Program (NKDEP) does not endorse the use of the MDRD equation for patients that are not between the ages of 18 and 70, are , have extremes of body size, muscle mass, or nutritional status, or are non- or non-. According to the National Kidney Foundation, irrespective of diagnosis, the stage of the disease is based on the level of kidney function: Stage Description GFR(mL/min/1.73 m(2)) 1 Kidney damage with normal or decreased GFR 90 2 Kidney damage with mild decrease in GFR 60-89 3 Moderate decrease in GFR 30-59 4 Severe decrease in GFR 15-29 5 Kidney failure <15 (or dialysis) 49 -- REFERENCE VALUE -- 25-HYDROXY D TOTAL (D2+D3) Optimum levels in the normal population are 25-80 Test Performed by: [facility] Dpt of Lab Med and Pathology [address] [place], [place] [id number] Bench Worker Apprentice: Andrew Duncan III, M.D. 50 Please note change in reference range effective 08 . 51 Anion gap measurement may be of limited value in the presence of any alkalosis, especially in a combined acid base disorder. . 52 A metabolite of Naproxen, O-desmethylnaproxen, has been shown to interfere with the Jendrassik-Cecilia method for measuring total bilirubin. Samples from patients who have taken Naproxen have shown spurious elevation in total bilirubin levels. 53 Because ethnic data is not always readily available, this report includes an eGFR for both -Americans and non- Americans. The National Kidney Disease Education Program (NKDEP) does not endorse the use of the MDRD equation for patients that are not between the ages of 18 and 70, are , have extremes of body size, muscle mass, or nutritional status, or are non- or non-. According to the National Kidney Foundation, irrespective of diagnosis, the stage of the disease is based on the level of kidney function: Stage Description GFR(mL/min/1.73 m(2)) 1 Kidney damage with normal or decreased GFR 90 2 Kidney damage with mild decrease in GFR 60-89 3 Moderate decrease in GFR 30-59 4 Severe decrease in GFR 15-29 5 Kidney failure <15 (or dialysis) 54 CHOLESTEROL INTERPRETATION: Desirable: Less than 200 MG/DL Borderline-High Risk: 200-239 MG/DL High-Risk: 240 MG/DL and over 55 HDL INTERPRETATION: Undesirable: High Risk: Less than 40 MG/DL Desirable: Low Risk: Greater than 60 MG/DL 56 LDL INTERPRETATION: Low Risk Optimal Level: LDL Less than 100 MG/DL Near or Above Optimal: LDL 100-129 MG/DL Borderline High Risk: LDL 130-159 MG/DL High Risk: LDL 160-189 MG/DL Very High Risk: LDL Greater than 189 MG/DL 57 -- REFERENCE VALUE -- 25-HYDROXY D TOTAL (D2+D3) Optimum levels in the normal population are 25-80 Test Performed by: [facility] Dpt of Lab Med and Pathology [address] [place], [place] [phone] Bench Worker Apprentice: Andrew Duncan III, M.D. 58 THERAPEUTIC TARGET FOR THE TREATMENT OF DIABETES MELLITUS PATIENTS IS <7% HBA1C, AND IN SELECTIVE PATIENTS <6.0%. PLEASE REFER TO [employer] DIABETIC CARE GUIDELINES FOR FURTHER INFORMATION. 59 Please note change in reference range effective 08 . 60 CHOLESTEROL INTERPRETATION: Desirable: Less than 200 MG/DL Borderline-High Risk: 200-239 MG/DL High-Risk: 240 MG/DL and over 61 HDL INTERPRETATION: Undesirable: High Risk: Less than 40 MG/DL Desirable: Low Risk: Greater than 60 MG/DL 62 LDL INTERPRETATION: Low Risk Optimal Level: LDL Less than 100 MG/DL Near or Above Optimal: LDL 100-129 MG/DL Borderline High Risk: LDL 130-159 MG/DL High Risk: LDL 160-189 MG/DL Very High Risk: LDL Greater than 189 MG/DL 63 Anion gap measurement may be of limited value in the presence of any alkalosis, especially in a combined acid base disorder. . 64 A metabolite of Naproxen, O-desmethylnaproxen, has been shown to interfere with the Jendrassik-Hopkins method for measuring total bilirubin. Samples from patients who have taken Naproxen have shown spurious elevation in total bilirubin levels. 65 Because ethnic data is not always readily available, this report includes an eGFR for both -Americans and non- Americans. The National Kidney Disease Education Program (NKDEP) does not endorse the use of the MDRD equation for patients that are not between the ages of 18 and 70, are , have extremes of body size, muscle mass, or nutritional status, or are non- or non-. According to the National Kidney Foundation, irrespective of diagnosis, the stage of the disease is based on the level of kidney function: Stage Description GFR(mL/min/1.73 m(2)) 1 Kidney damage with normal or decreased GFR 90 2 Kidney damage with mild decrease in GFR 60-89 3 Moderate decrease in GFR 30-59 4 Severe decrease in GFR 15-29 5 Kidney failure <15 (or dialysis) 66 CHOLESTEROL INTERPRETATION: Desirable: Less than 200 MG/DL Borderline-High Risk: 200-239 MG/DL High-Risk: 240 MG/DL and over 67 HDL INTERPRETATION: Undesirable: High Risk: Less than 40 MG/DL Desirable: Low Risk: Greater than 60 MG/DL 68 LDL INTERPRETATION: Low Risk Optimal Level: LDL Less than 100 MG/DL Near or Above Optimal: LDL 100-129 MG/DL Borderline High Risk: LDL 130-159 MG/DL High Risk: LDL 160-189 MG/DL Very High Risk: LDL Greater than 189 MG/DL 69 Anion gap measurement may be of limited value in the presence of any alkalosis, especially in a combined acid base disorder. . 70 A metabolite of Naproxen, O-desmethylnaproxen, has been shown to interfere with the Jendrassik-Hopkins method for measuring total bilirubin. Samples from patients who have taken Naproxen have shown spurious elevation in total bilirubin levels. 71 Because ethnic data is not always readily available, this report includes an eGFR for both -Americans and non- Americans. The National Kidney Disease Education Program (NKDEP) does not endorse the use of the MDRD equation for patients that are not between the ages of 18 and 70, are , have extremes of body size, muscle mass, or nutritional status, or are non- or non-. According to the National Kidney Foundation, irrespective of diagnosis, the stage of the disease is based on the level of kidney function: Stage Description GFR(mL/min/1.73 m(2)) 1 Kidney damage with normal or decreased GFR 90 2 Kidney damage with mild decrease in GFR 60-89 3 Moderate decrease in GFR 30-59 4 Severe decrease in GFR 15-29 5 Kidney failure <15 (or dialysis) 72 Anion gap measurement may be of limited value in the presence of any alkalosis, especially in a combined acid base disorder. . 73 Note change in reference range as of 07/08/08. The change was based on recommendations from the [place] [employer]. 74 Please note change in reference range effective 08 . 75 Because ethnic data is not always readily available, this report includes an eGFR for both -Americans and non- Americans. The National Kidney Disease Education Program (NKDEP) does not endorse the use of the MDRD equation for patients that are not between the ages of 18 and 70, are , have extremes of body size, muscle mass, or nutritional status, or are non- or non-. According to the National Kidney Foundation, irrespective of diagnosis, the stage of the disease is based on the level of kidney function: Stage Description GFR(mL/min/1.73 m(2)) 1 Kidney damage with normal or decreased GFR 90 2 Kidney damage with mild decrease in GFR 60-89 3 Moderate decrease in GFR 30-59 4 Severe decrease in GFR 15-29 5 Kidney failure <15 (or dialysis) Procedures Date CPT Code Description Status Comment 02/28/2018 [id number] EKG Tracing & Completed Interpretation 01/21/2018 Diabetic Retinal Eye Exam Completed Document: 02/07/18 - Rec.Release/Arleo 03/04/[id number] Inject/Drain Joint/Bursa Major Completed 02/25/2017 Inject/Drain Joint/Bursa Major Completed 02/18/2017 Inject/Drain Joint/Bursa Major Completed 01/17/2017 Diabetic Retinal Eye Exam Completed 12/24/[id number] Inject/Drain Joint/Bursa Major Completed 07/04/2016 Mammogram Completed 06/12/2016 [id number] EKG Tracing & Completed Interpretation 01/17/2016 Diabetic Retinal Eye Exam Completed 01/17/2015 Diabetic Retinal Eye Exam Completed 11/22/201429132 Inject/Drain Joint/Bursa Major Completed 11/22/2014 [id number] Rad Exam; Both Knees, Standing Completed Ap 05/19/2014 Mammogram Completed 12/31/2013 Diabetic Retinal Eye Exam Completed 04/15/2013 Bone Mineral Density Test Completed 04/15/2013 Mammogram Completed 12/26/2012 Diabetic Retinal Eye Exam Completed 03/03/2012 [id number] EKG Tracing & Completed Interpretation 09/18/2011 Mammogram Completed 06/05/2010 [id number] EKG Tracing & Completed Interpretation 11/24/2009 Mammogram Completed 11/23/2008 Bone Mineral Density Test Completed 11/01/2008 [id number] EKG Tracing & Completed Interpretation 04/22/2000 Mammogram Completed 10/10/1999 Mammogram Completed 04/07/1999 Mammogram Completed Encounters Type Date Location Provider CPT E/M Dx Office Visit 02/28/2018 [facility] Internal Jaimie Doshi 76868 Z01.818 2:00p Medicine Migue Ford M.D. M16.11 E11.9 I10 Office Visit 02/06/2018 10:20a [facility] Internal Medicine Jaimie Doshi 78722 E11.9 Migue Ford M.D. I10 M25.551 E78.5 Office Visit 02/05/2018 10:45a [facility] M.D. 13783 M16.11 C.MMadeleine M25.551 E66.01 Office Visit 07/09/2017 10:40a [facility] Internal Medicine Jaimie Doshi 35712 E11.9 - Liliana Lees I10 M25.561 Office Visit 04/11/2017 10:20a [facility] Internal Medicine Jaimie Doshi M.D. 12453 I10 - Liliana M25.561 Office Visit 02/06/2017 11:30a [facility] M.D. 33217 M25.561 C.M.AGeorgiana M17.11 M25.551 M16.11 Office Visit 12/24/2016 1:00p [facility] M.D. 89700 M25.561 C.M.AGeorgiana M17.11 M25.551 M16.11 Office Visit 12/17/2016 11:20a [facility] Internal Medicine Jaimie Doshi 69330 E11.9 - Liliana Lees I10 M25.551 Office Visit 07/24/2016 11:20a [facility] Internal Medicine Jaimie Doshi 41721 R21 - Liliana Lees Office Visit 07/18/2016 2:20p [facility] [place] [address] R21 - Crook Office Visit 06/12/2016 11:00a [facility] Internal Medicine Jaimie Doshi 24577 Z00.00 - Liliana Lees E11.9 I10 E78.0 R74.8 Z12.31 M25.569 Office Visit 11/22/2015 10:40a [facility] Internal Medicine Jaimie Doshi 98340 E11.9 - Liliana Lees I10 E78.0 R94.5 Z12.11 Z23 Office Visit 01/24/2015 10:00a [facility] Lucia M.D. 59823 716.96 C.M.A. 715.36 Office Visit 11/22/2014 12:15p [facility] Luke, 20042 715.95 Of C.M.A. RPA-C Office Visit 10/19/2014 10:00a [facility] Internal Medicine Jaimie Doshi 99503 250.00 - Liliana Lees 719.46 401.1 v04.81 Office Visit 04/13/2014 1:40p [facility] Internal Medicine Jaimie Doshi 05379 V70.0 - Liliana Lees 250.00 272.0 V76.10 625.6 443.9 Office Visit 09/15/2013 1:00p [facility] Internal Medicine Jaimie Doshi 10676 250.00 - Liliana Lese 272.0 275.42 Office Visit 03/16/2013 1:20p [facility] Internal Medicine Jaimie Cotton, 36528 V70.0 - Crook M.D. 627.9 V76.10 250.00 275.42 Office Visit 10/02/2012 10:00a [facility] Internal Medicine Jaimie Cotton, 48812 250.00 - Crook M.D. 272.0 401.1 V04.81 Office Visit 05/29/2012 11:00a [facility] Internal Medicine Jaimie Cotton, 36792 250.00 - [place] M.D. 401.1 272.0 Office Visit 03/27/2012 10:00a [facility] Internal Medicine Jaimie Cotton, 07114 250.00 - Crook M.D. Office Visit 08/27/2011 3:40p DO Not Use Jaimie Cotton, 00829 401.1 [employer] Worker-Crook M.D. 272.0 275.42 V76.10 268.9 V04.81 Office Visit 05/07/2011 10:40a DO Not Use Jaimie Cotton, 89872 401.1 [employer] Worker-Crook M.D. 715.90 790.21 275.42 Office Visit 02/05/2011 2:00p DO Not Use Jaimie Cotton, 80695 401.1 [employer] Worker-Crook M.D. 275.42 272.0 790.21 715.90 Office Visit 06/05/2010 9:00a DO Not Use Jaimie Cotton, 31448 V72.84 [employer] Worker-Crook M.D. 401.1 Office Visit 05/01/2010 10:45a DO Not Use Jaimie Cotton, 59954 401.1 [employer] Worker-Crook M.D. 272.0 Office Visit 10/31/2009 10:45a DO Not Use RadShalonda cooper, 15666 272.0 [employer] Worker-Crook M.D. 715.90 401.1 V06.5 V70.0 Office Visit 04/27/2009 10:45a DO Not Use Shalonda Carbajal, 26708 272.0 [employer] Worker-Crook M.D. 401.1 Office Visit 11/01/2008 2:30p DO Not Use Shalonda Carbajal, 03474 V70.0 [employer] Worker-Crook M.D. 401.1 V04.81 Office Visit 08/09/2008 10:15a DO Not Use Radomski, Shalonda, 07285 275.42 [employer] Worker-Crook M.D. 715.96 401.1 Office Visit 06/02/2008 10:45a DO Not Use Radomski, Shalonda, 77588 729.81 [employer] Worker-Crook M.D. 719.46 401.1 Office Visit 03/03/2008 11:15a DO Not Use Radomski, Shalonda, 82613 268.9 [employer] Worker-Crook M.D. 401.1 Office Visit 08/20/2007 9:00a DO Not Use Radomski, Shalonda, 34966 252.00 [employer] Worker-Crook M.D. 272.0 715.96 401.1 V04.81 V03.82 Office Visit 04/16/2007 1:30p DO Not Use Radomski Shalonda, 36479 268.9 [employer] Worker-Crook M.D. 401.1 Office Visit 01/13/2007 3:15p DO Not Use [place], [place], [id number] 401.1 [employer] Worker-Crook M.D. 252.00 268.9 Office Visit 07/03/2006 9:15a DO Not Use [place]ki [place], [id number] 401.1 [employer] Worker-Crook M.D. 272.0 Plan of Care Future Appointment(s):04/03/2018 12:30 pm - Eb Jimenez PA-C at [facility]04/03/2018 12:30 pm - ROME Graves at [facility]09/23/2018 3:00 pm - Jaimie Doshi M.D. at [facility] Internal Medicine - Eanggofzl89/17/2018 12:30 pm - Nitza Barraza M.D. at [facility]03/21/2018 - Nitza Barraza M.D.M16.11 Unilateral primary osteoarthritis, right hipFollow up:Follow up: 2 weeks after [id number] Pain in right hip
[2018-04-03] MEDS ORDERED: Gabapentin CAP(*) 300 MG ONE (10:34)
[2018-04-03] MEDS ORDERED: Ondansetron ODT TAB* 4 MG ONE (10:34)
[2018-04-03] MEDS ORDERED: Dexamethasone TAB* 4 MG ONE (10:35)
[2018-04-03] MEDS ORDERED: Buffered Lidocaine 0.9% SYRIN* 5 ML/SYR SYRINGE ONE (10:35)
[2018-04-03] MEDS ORDERED: Famotidine TAB* 20 MG ONE (10:35)
[2018-04-03] MEDS ORDERED: ceFAZolin 2 GM PREMIX (*) 2 GM/50 ML BAG IVPB ONE (10:35)
[2018-04-03] MEDS ORDERED: Midazolam* 1 MG/ML 10 ML VIAL (10 MG) ONE (10:54)
[2018-04-03] MEDS ORDERED: fentaNYL* 50 MCG/ML 2 ML VIAL (100 MCG VIAL) ONE ×2 (10:54→15:36)
--- NOTE | 2018-04-03 14:49 | RAD ---
INDICATION: Right hip replacement COMPARISON: None TECHNIQUE: Single crosstable lateral view of the pelvis is obtained for femoral stem sizing FINDINGS: The acetabular cup is in place and there is a femoral stem for sizing.
[2018-04-03] MEDS ORDERED: Ketorolac INJ* 30 MG/ML 1 ML VIAL ONE (15:14)
[2018-04-03] MEDS ORDERED: Bupivacaine 0.5% PF 10 ML VIAL INJ ONE (15:15)
[2018-04-03] MEDS ORDERED: Phenylephrine INJ* 10 MG/ML 1 ML VIAL (10 MG) ONE (15:15)
[2018-04-03] MEDS ORDERED: Propofol* 500 MG/50 ML BTL ONE (15:15)
[2018-04-03] MEDS ORDERED: ROPIVACAINE 5 MG/ML 30 ML BTL (0.5%) ONE (15:15)
[2018-04-03] MEDS ORDERED: Polyethylene Glycol 3350* 17 GM PACKET PO PRN (15:26)
[2018-04-03] MEDS ORDERED: Ondansetron TAB* 4 MG PO PRN (15:26)
[2018-04-03] MEDS ORDERED: Magnesium Hydroxide LIQ* 30 ML UDC PO PRN (15:26)
[2018-04-03] MEDS ORDERED: oxyCODONE TAB* 5 MG TAB PO PRN (15:26)
[2018-04-03] MEDS ORDERED: Ondansetron 40 MG VIAL* 2 MG/ML 20 ML VIAL IV PRN (15:26)
[2018-04-03] MEDS ORDERED: diPHENhydraMINE IV* 50 MG/ML 1 ml VIAL (BENADRYL) IV PRN (15:26)
[2018-04-03] MEDS ORDERED: Bisacodyl SUPP* 10 MG SUPP PR PRN (15:26)
[2018-04-03] MEDS ORDERED: Acetaminophen TAB* 325 MG PO PRN (15:26)
[2018-04-03] MEDS ORDERED: Morphine VIAL* 4 MG/ML VIAL (1 ml vial) IV PRN (15:26)
[2018-04-03] MEDS ORDERED: Morphine INJ* 10 MG/ML 1 ML CARPUJECT ONE (15:36)
--- NOTE | 2018-04-03 16:04 | RAD ---
INDICATION: Status post total right hip replacement surgery. COMPARISON: Comparison is made with a prior study from February 05, 2018. TECHNIQUE: AP views of the pelvis and AP and crosstable lateral views of the right hip were obtained. FINDINGS: The patient is status post total right hip replacement surgery. The bones and prostheses are in normal alignment. IMPRESSION: STATUS POST TOTAL RIGHT HIP REPLACEMENT SURGERY.
[2018-04-03] MEDS ORDERED: Warfarin TAB(*) 6 MG PO ONE (17:00)
[2018-04-03] MEDS: oxyCODONE/Acetamin 5/325 MG* TAB PO PRN ×2 (18:09→22:27)
[2018-04-03] MEDS ORDERED: Fluconazole 100 MG TAB* TAB PO ONE (21:00)
[2018-04-03] MEDS: Docusate CAP* 100 MG PO SCH (22:13)
[2018-04-03] MEDS: ceFAZolin 1 GM in Dextrose (*) 1 GM/50 ML BAG IVPB SCH (22:14)
[2018-04-03] MEDS: Nystatin CREAM* 15 GM TUBE TOPICAL SCH (22:14)
[2018-04-03] MEDS: Magnesium Hydroxide LIQ* 30 ML UDC PO SCH (22:26)
--- NOTE | 2018-04-03 23:43 | CONS ---
CONSULTATION REPORT: DATE OF CONSULT: 04/03/18 CONSULTING PROVIDER: Deon Crystal MD REQUESTING SERVICE AND ATTENDING PHYSICIAN: Nitza Barraza MD REASON FOR CONSULT: Medical management of hypertension and hyperlipidemia. CHIEF COMPLAINT: Right hip pain. HISTORY OF PRESENT ILLNESS: Kemi Domingo is a 77-year-old female with past medical history of hypertension, hyperlipidemia, and right hip osteoarthritis and knee osteoarthritis. She is status post right total hip arthroplasty with Dr. Barraza. She was evaluated in the PACU. She is in good spirits, complaining of only some mild burning pain in the right hip and some gas/flatus. She denies any chest pain, shortness of breath, abdominal pain, fevers, chills, nausea, vomiting, diarrhea, constipation, headaches, vision changes. PAST MEDICAL HISTORY: Hypertension; high cholesterol; impaired glucose tolerance(not on any diabetic medications). PAST SURGICAL HISTORY: Cataract excision left eye, now status post right total hip arthroplasty. MEDICATIONS: 1. Simvastatin 20 mg daily. 2. Ibuprofen p.r.n. 3. Aspirin 81 mg daily. 4. Torsemide 5 mg daily. 5. Ramipril 20 mg daily. 6. Vitamin D 1000 units daily. ALLERGIES: LIPITOR causes fatigue. FAMILY HISTORY: Diabetes and cancer. 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 Never a smoker. Occasional alcohol use. No illicit drugs. Her medical surrogate is her brother, Juan Jose Alvarenga, who is at bedside. REVIEW OF SYSTEMS: A complete 14-point review of systems is negative except as per HPI. PHYSICAL EXAM: General Appearance: No acute distress. Vital Signs: Temperature 97.3, heart rate 77, respiratory rate 16, satting 95% on room air, blood pressure 141/90. HEENT: Normocephalic, atraumatic. Pupils are equal, round, and reactive to light. Extraocular motions intact. No scleral icterus. Neck: Supple. Respiratory: Clear to auscultation bilaterally anteriorly with no wheezing, rales, or rhonchi. Cardiovascular: Regular rate and rhythm. No murmurs, rubs, or gallops. Abdomen: Soft, nontender, slightly distended/ obese. Extremities: Warm, well perfused. No peripheral edema. Posterior hip precaution cushions right hip with overlying bandage. No strikethrough. Neuro : Sensation intact. DIAGNOSTIC STUDIES/LAB DATA: Labs, none. Imaging, none. ASSESSMENT AND PLAN: Kemi Domingo is a 77-year-old female with now right total hip replacement. Hospitalist service has been consulted to help manage her hyperlipidemia and hypertension. For her hypertension, I would continue her ramipril 20 mg a day and torsemide 5 mg a day. For her hyperlipidemia, continue her simvastatin 20 mg daily. Also continue her aspirin 81 mg. She has been started on Lovenox 40 mg q.24 hours for DVT prophylaxis. She is on oxycodone, Flexeril 10 t.i.d. p.r.n. for pain control with p.r.n. Narcan available. She is being transitioned to Coumadin. Medical surrogate is Juan Jose Alvarenga. Thank you for this interesting consult. [id number]/[facility] #: [id number] LISSET
[2018-04-04] MEDS: oxyCODONE/Acetamin 5/325 MG* TAB PO PRN ×4 (03:42→21:37)
[2018-04-04] MEDS: ceFAZolin 1 GM in Dextrose (*) 1 GM/50 ML BAG IVPB SCH ×2 (05:39→13:07)
[2018-04-04 05:41] LABS: Hematocrit 29 % (35-47); Hemoglobin 9.4 g/dl (12.0-16.0); Mean Platelet Volume 9.4 um3 (7.4-10.4); Platelet Count 193 10^3/ul (150-450)
[2018-04-04 05:49] LABS: INR 0.95 (0.77-1.02)
[2018-04-04 05:58] LABS: EGFR Non-African American 53.9 (>60)
[2018-04-04] MEDS: Ramipril CAP* 10 MG PO SCH (09:17)
[2018-04-04] MEDS: TORSEMIDE 5 MG PO SCH (09:18)
[2018-04-04] MEDS: Docusate CAP* 100 MG PO SCH ×2 (09:18→21:38)
[2018-04-04] MEDS: Magnesium Hydroxide LIQ* 30 ML UDC PO SCH ×2 (09:18→21:53)
[2018-04-04] MEDS: Nystatin CREAM* 15 GM TUBE TOPICAL SCH ×2 (09:23→21:39)
[2018-04-04] MEDS: Enoxaparin(*) 40 MG/0.4 ML SYR SUBCUT SCH (12:13)
--- NOTE | 2018-04-04 13:16 | PN ---
Progress Note - Progress Note Date of Service: 04/04/18 SOAP: Subjective: 77 y/o female s/p R KORY by Dr. Barraza 04/04/2018. Patient feeling well, working with PT well, eager for D/C to home, will have brother and sister in law helping her w 24 hours care at d/c. VSS, afebrile overnight. Objective: General- Well appearing, NAD, AO, walking hallways with PT MSK- RLE- DF/PF = b/l, PT 2+, negative homans sign b/l, hip abductor brace on, surgical dressing intact, no drainage noted, no erythema, induration. SITLT Vital Signs Temp 97.9 F 04/04/18 11:14 Pulse 79 04/04/18 11:14 Resp 16 04/04/18 12:13 BP 99/45 04/04/18 11:14 Pulse Ox 96 04/04/18 11:14 Intake & Output 04/03/18 04/04/18 04/04/18 18:59 06:59 18:59 Intake Total 2700 3286 Output Total 1250 900 0 Balance 1450 2386 0 Weight 104.326 kg Intake: IV Fluids 2700 981 LR 981 NS 50ML, Cefazolin 2G 50 lr 2650 IVPB 55 ABX - CEFAZOLIN 55 Oral 2250 Output: Urine 0 0 Jones 950 900 Estimated Blood Loss 300 Other: # Bowel Movements 0 Assessment: Stable 77 y/o female s/p R KORY by Dr. Barraza 04/04/2018. Plan: - DVT prophylaxis- lovenox, coumadin 6mg tonight - Continue PT/ OT - Follow up with Dr. Barraza within 10-14 days - H&H - stable - post-op IV ABX - completed Acetaminophen (Tylenol Tab*) 650 mg PO Q4H PRN PRN Reason: PAIN OR TEMPERATURE Bisacodyl (Dulcolax Supp*) 10 mg OK DAILY PRN PRN Reason: constipation Cyclobenzaprine HCl (Flexeril Tab*) 10 mg PO TID PRN PRN Reason: SPASMS Diphenhydramine HCl (Benadryl Iv*) 12.5 mg IV Q6H PRN PRN Reason: PRURITIS Docusate Sodium (Colace Cap*) 100 mg PO BID [facility] Last Admin: 04/04/18 09:18 Dose: 100 mg Enoxaparin Sodium (Lovenox(*)) 40 mg SUBCUT Q24H [facility] Last Admin: 04/04/18 12:13 Dose: 40 mg Cefazolin Sodium/Dextrose (Kefzol 1 Gm In Dextrose Duplex (*)) 1 gm in 50 mls @ 200 mls/hr IVPB Q8H [facility] Stop: 04/04/18 13:44 Last Admin: 04/04/18 13:07 Dose: 200 mls/hr Lactated Ringer's (Lactated Ringers 1000 Ml Bag*) 1,000 mls @ 100 mls/hr IV PER RATE [facility] Last Admin: 04/04/18 03:34 Dose: 100 mls/hr Lactulose (Lactulose*) 30 ml PO Q6H PRN PRN Reason: constipation Magnesium Hydroxide (Milk Of Magnesia Liq*) 30 ml PO BID [facility] Last Admin: 04/04/18 09:18 Dose: 30 ml Magnesium Hydroxide (Milk Of Magnesia Liq*) 30 ml PO Q6H PRN PRN Reason: constipation Morphine Sulfate (Morphine Vial*) 2 mg IV Q2H PRN PRN Reason: PAIN Torsemide [Torsemide (] 5 Mg Tab) 0.5 tab PO QAM [facility] Last Admin: 04/04/18 09:18 Dose: Not Given Nystatin (Nystatin Cream*) 1 applic TOPICAL BID [facility] Last Admin: 04/04/18 09:23 Dose: 1 applic Ondansetron HCl (Zofran 40 Mg Vial*) 4 mg IV Q6H PRN PRN Reason: nausea Ondansetron HCl (Zofran Tab*) 4 mg PO Q6H PRN PRN Reason: NAUSEA Oxycodone HCl (Roxycodone Tab*) 10 mg PO Q4H PRN PRN Reason: SEVERE PAIN Last Admin: 04/04/18 12:13 Dose: 10 mg Oxycodone/Acetaminophen (Percocet 5/325 Tab*) 2 tab PO Q4H PRN PRN Reason: PAIN Last Admin: 04/04/18 09:18 Dose: 2 tab Oxycodone/Acetaminophen (Percocet 5/325 Tab*) 1 tab PO Q4H PRN PRN Reason: PAIN Last Admin: 04/03/18 18:09 Dose: 1 tab Pharmacy Profile Note (Scopolamine Patch Remove*) 1 note PATCH OFF Q72H ONE Stop: 04/06/18 05:51 Pharmacy Profile Note (Coumadin Daily Reminder*) 1 note FOLLOW UP 1700 [facility] Polyethylene Glycol/Electrolytes (Miralax*) 17 gm PO DAILY PRN PRN Reason: Constipation Ramipril (Altace Cap*) 20 mg PO QAM [facility] Last Admin: 04/04/18 09:17 Dose: 20 mg Warfarin Sodium (Coumadin Tab(*)) 6 mg PO ONCE@1700 [facility] PRN Reason: Protocol Stop: 04/04/18 17:01
[2018-04-04] MEDS ORDERED: Warfarin TAB(*) 6 MG PO ONE (17:00)
--- NOTE | 2018-04-04 18:59 | PN ---
Subjective Interval History: in good spirits. walked. pain controlled with percosets denies chest pain, abdominal pain afebrile HDS Objective Active Medications: Acetaminophen (Tylenol Tab*) 650 mg PO Q4H PRN PRN Reason: PAIN OR TEMPERATURE Bisacodyl (Dulcolax Supp*) 10 mg SD DAILY PRN PRN Reason: constipation Cyclobenzaprine HCl (Flexeril Tab*) 10 mg PO TID PRN PRN Reason: SPASMS Diphenhydramine HCl (Benadryl Iv*) 12.5 mg IV Q6H PRN PRN Reason: PRURITIS Docusate Sodium (Colace Cap*) 100 mg PO BID [facility] Last Admin: 04/04/18 09:18 Dose: 100 mg Enoxaparin Sodium (Lovenox(*)) 40 mg SUBCUT Q24H [facility] Last Admin: 04/04/18 12:13 Dose: 40 mg Lactated Ringer's (Lactated Ringers 1000 Ml Bag*) 1,000 mls @ 100 mls/hr IV PER RATE [facility] Last Admin: 04/04/18 03:34 Dose: 100 mls/hr Lactulose (Lactulose*) 30 ml PO Q6H PRN PRN Reason: constipation Magnesium Hydroxide (Milk Of Magnesia Liq*) 30 ml PO BID [facility] Last Admin: 04/04/18 09:18 Dose: 30 ml Magnesium Hydroxide (Milk Of Magnesia Liq*) 30 ml PO Q6H PRN PRN Reason: constipation Morphine Sulfate (Morphine Vial*) 2 mg IV Q2H PRN PRN Reason: PAIN Pto:Torsemide [ (Torsemide] 5 Mg Tab) 0.5 tab PO QAM [facility] Last Admin: 04/04/18 09:18 Dose: Not Given Nystatin (Nystatin Cream*) 1 applic TOPICAL BID [facility] Last Admin: 04/04/18 09:23 Dose: 1 applic Ondansetron HCl (Zofran 40 Mg Vial*) 4 mg IV Q6H PRN PRN Reason: nausea Ondansetron HCl (Zofran Tab*) 4 mg PO Q6H PRN PRN Reason: NAUSEA Oxycodone HCl (Roxycodone Tab*) 10 mg PO Q4H PRN PRN Reason: SEVERE PAIN Last Admin: 04/04/18 12:13 Dose: 10 mg Oxycodone/Acetaminophen (Percocet 5/325 Tab*) 2 tab PO Q4H PRN PRN Reason: PAIN Last Admin: 04/04/18 17:17 Dose: 2 tab Oxycodone/Acetaminophen (Percocet 5/325 Tab*) 1 tab PO Q4H PRN PRN Reason: PAIN Last Admin: 04/03/18 18:09 Dose: 1 tab Pharmacy Profile Note (Scopolamine Patch Remove*) 1 note PATCH OFF Q72H ONE Stop: 04/06/18 05:51 Pharmacy Profile Note (Coumadin Daily Reminder*) 1 note FOLLOW UP 1700 [facility] Polyethylene Glycol/Electrolytes (Miralax*) 17 gm PO DAILY PRN PRN Reason: Constipation Ramipril (Altace Cap*) 20 mg PO QAM [facility] Last Admin: 04/04/18 09:17 Dose: 20 mg Simvastatin (Zocor(Nf)) 20 mg PO DAILY [facility] Vital Signs - 8 hr 04/04/18 04/04/18 04/04/18 11:14 12:13 17:17 Temperature 97.9 F Pulse Rate 79 Respiratory 16 16 16 Rate Blood Pressure 99/45 (mmHg) O2 Sat by Pulse 96 Oximetry Oxygen Devices in Use Now: None Appearance: NAD, sitting in chair. Eyes: No Scleral Icterus, PERRLA Ears/Nose/Mouth/Throat: NL Teeth, Lips, Gums Neck: NL Appearance and Movements; NL JVP Respiratory: Symmetrical Chest Expansion and Respiratory Effort, Clear to Auscultation Cardiovascular: NL Sounds; No Murmurs; No JVD, RRR Abdominal: NL Sounds; No Tenderness; No Distention, No Hepatosplenomegaly Extremities: No Edema, - - right hip bandage w/o erythema, induration or drainage. Skin: No Rash or Ulcers Neurological: Alert and Oriented x 3, NL Sensation, NL Muscle Strength and Tone Nutrition: Taking PO's Result Diagrams: 04/04/18 05:14 04/04/18 05:14 Additional Lab and Data: Laboratory Results - last 24 hr 04/04/18 04/04/18 04/04/18 05:14 05:14 05:14 Hgb 9.4 L Hct 29 L Plt Count 193 MPV 9.4 INR (Anticoag Therapy) 0.95 Sodium 135 L Potassium 4.4 Chloride 106 Carbon Dioxide 27 Anion Gap 2 BUN 21 Creatinine 1.00 H Est GFR ( Amer) 69.3 Est GFR (Non-Af Amer) 53.9 BUN/Creatinine Ratio 21.0 H Glucose 133 H Calcium 9.1 Assess/Plan/Problems-Billing Assessment: 77 yo female PMH HTN, HLD, OA now s/p left total hip arthroplasty. - Patient Problems (1) HTN (hypertension) Current Visit: Yes Status: Acute Code(s): I10 - ESSENTIAL (PRIMARY) HYPERTENSION SNOMED Code(s): 89741133 Comment: continue torsemide and ramipril. well controlled. (2) Status post total hip replacement, left Current Visit: Yes Status: Acute Code(s): Z96.642 - PRESENCE OF LEFT ARTIFICIAL HIP JOINT SNOMED Code(s): 161860224568 Comment: pain control per ortho. some suspected facial flushing from percosets dvt ppx. lovenox-> coumadin per ortho. (3) HLD (hyperlipidemia) Current Visit: Yes Status: Acute Code(s): E78.5 - HYPERLIPIDEMIA, UNSPECIFIED SNOMED Code(s): 02908966 Comment: continue simvastatin 20mg
[2018-04-04] MEDS: SIMVASTATIN 20 MG PO SCH (21:38)
[2018-04-05] MEDS: oxyCODONE/Acetamin 5/325 MG* TAB PO PRN ×5 (02:07→22:00)
--- NOTE | 2018-04-05 04:09 | OP ---
OPERATIVE REPORT: DATE OF OPERATION: 04/03/18 DATE OF : 42 SURGEON: Nitza Barraza MD SPRAY PAINTER HELPER: ROME Blair Ms. Sellers did help throughout the procedure with preparation of the leg, wound retraction, manipulation of the hip and wound closure. ANESTHESIOLOGIST: Nick Flores MD ANESTHESIA: Spinal. PRE-OP DIAGNOSIS: Severe end-stage degenerative osteoarthritis of the right hip joint. POST-OP DIAGNOSIS: Severe end-stage degenerative osteoarthritis of the right hip joint. OPERATIVE PROCEDURE: Right total hip arthroplasty. INDICATIONS: Ms. Domingo is a 77-year-old female with years of increasingly severe right hip pain. She failed conservative treatment with anti- inflammatories, pain medication, physical therapy, and ambulatory assistive devices. Radiographs showed dwub-oh-lzik arthritis. Due to continued pain and decreased quality of life, she elected to undergo right total hip arthroplasty. Informed consent was obtained from the patient. She understood the risks of the procedure included, but were not limited to, bleeding, infection, damage to nearby structures, continued pain, need for further surgery, intraoperative fracture, nerve palsy, hardware failure or loosening, dislocation, leg length discrepancy, stroke, heart attack, blood clot, and . She wished to proceed. COMPLICATIONS: None. ESTIMATED BLOOD LOSS: 300 cc. SPECIMENS: Femoral head and acetabulum reamings sent to Pathology. HARDWARE: This is uncemented [place] total hip arthroplasty hardware. For the cup, a 54E Tritanium cluster hole shell, a single 20-mm cancellous bone screw. For the insert, a Trident X3 10-degree polyethylene liner 36E. For the stem, a size 3 Accolade TMZF with a 127-degree neck. For the head, a Biolox delta ceramic V40 head 36 +0. INTRAOPERATIVE FINDINGS: Intraoperatively, the patient was noted to have severe end-stage arthritis. She had significant osteophyte formation anteriorly and inferiorly around the acetabulum. She had complete loss of cartilage along the femoral head and acetabulum. DESCRIPTION OF PROCEDURE: Ms. Domingo was identified in the preanesthesia unit. Her right lower extremity was marked as the correct operative side. Informed consent was signed and placed in the chart. The patient was taken to the operating room and placed under spinal anesthesia. A Jones catheter was placed. The patient was placed in the left lateral decubitus position on the peg board. All bony prominences were well padded. Preop time-out was made to correctly identify the patient's side and site. Appropriate perioperative antibiotics were given within 1 hour of incision. A 12-cm posterior hip incision was made with a 10 blade and carried down to the lateral fascial layer. A new 10 blade was used to make an incision on the lateral fascial layer in line with the skin incision. A Charnley retractor was placed. The piriformis and conjoint tendons were identified. These were elevated off the posterolateral femur using electrocautery and tagged with #5 Ethibond. Electrocautery was then used to make a standard posterolateral capsular flap and this was also tagged with #5 Ethibond. The hip was carefully dislocated. Lesser troch to center of the femoral head measured 55 mm. The oscillating saw was used to make a femoral cut at the appropriate angle and height. The femoral head was removed. The femur was retracted anteriorly. After appropriate placement of retractors, the acetabulum was easily visualized. A long-handled knife was used to sharply remove any remaining labrum from the acetabular rim. The acetabulum was sequentially reamed up to a size 53. Bleeding subchondral bone bed was obtained. 53 trial had excellent fit. Final implant chosen was a Trident Tritanium cluster hole shell 54E. This was impacted into the acetabulum without difficulty. Stability of the cup was excellent with appropriate anteversion and abduction angle. A single 20-mm screw was placed in the superior posterior quadrant for extra stability. Trident X3 10-degree polyethylene insert 36E was then impacted into the acetabulum. Stability of the insert was checked and rechecked and noted to be stable. Attention was next turned to preparation of the femoral canal. A canal finder was used to enter the proximal femur. Femur was sequentially broached up to a size 3. Size 3 broach had good fit and appropriate anteversion. A 127 neck trial was placed as well as a 36+ 0 head trial. Lesser troch to the center of the femoral head measured 56 mm. The hip was reduced and taken through a range of motion. The hip was stable in all positions. There was appropriate soft tissue tension and leg lengths. The hip was carefully dislocated. All trials were removed. Final implant chosen was an Accolade TMZF size 3 with a 127-degree neck. This was impacted into the femoral canal without difficulty. There was excellent stability and appropriate anteversion. A 36 +0 Biolox delta ceramic V40 femoral head was impacted on to the femoral neck. The hip was reduced and taken through a range of motion. The hip was stable in all positions. Soft tissue tension and leg lengths were appropriate. The hip was copiously irrigated with sterile saline. Previously tagged capsules and tendons were reapproximated to the posterolateral femur using 2 trochanteric drill holes. The lateral fascial layer was closed using interrupted #1 Vicryls. The rest of the incision was closed in a layered fashion using 0 and 2-0 Vicryls. Skin was closed using running 3-0 Monocryl and Dermabond. Sterile Adaptic, 4x4s, and paper tape were used to cover the incision. The patient's anesthesia was reversed without difficulty. She was taken to the PACU in stable condition. Intended weightbearing will be weightbearing as tolerated. Intended DVT prophylaxis will be Coumadin with a Lovenox bridge. [id number]/[facility] #: [id number] [place]
[2018-04-05] MEDS: Cyclobenzaprine TAB* 10 MG PO PRN (04:25)
[2018-04-05 06:19] LABS: Hematocrit 25 % (35-47); Hemoglobin 8.6 g/dl (12.0-16.0); Mean Platelet Volume 9.6 um3 (7.4-10.4); Platelet Count 173 10^3/ul (150-450)
[2018-04-05 06:31] LABS: INR 1.25 (0.77-1.02)
[2018-04-05] MEDS: TORSEMIDE 5 MG PO SCH (08:57)
[2018-04-05] MEDS: Magnesium Hydroxide LIQ* 30 ML UDC PO SCH ×2 (08:57→22:02)
[2018-04-05] MEDS: Ramipril CAP* 10 MG PO SCH (08:58)
[2018-04-05] MEDS: Docusate CAP* 100 MG PO SCH ×2 (08:58→22:00)
--- NOTE | 2018-04-05 09:45 | PN ---
Progress Note - Progress Note Date of Service: 04/05/18 SOAP: Subjective: 77 y/o female s/p R KORY by Dr. Barraza 04/04/2018. Patient feeling well, has been able to walk with PT. Pt does complain of pain in her right and left calf with palpation. She states she has also not had a bowel movement. will have brother and sister in law helping her w 24 hours care at d/c. S. Objective: General- Well appearing, NAD, AO. MSK- RLE- DF/PF = b/l, PT 2+, surgical dressing changed, no drainage noted, no erythema, induration. Pt has tenderness to palpation in her calf, bilaterally. 2+ DP pulse is palpable. Vital Signs Temp 97.8 F 04/05/18 04:28 Pulse 96 04/05/18 04:28 Resp 16 04/05/18 08:57 BP 151/64 04/05/18 04:28 Pulse Ox 92 04/05/18 04:28 Intake & Output 04/04/18 04/05/18 04/05/18 18:59 06:59 18:59 Intake Total 0 1550 Output Total 0 1999 475 Balance 0 -450 -475 Intake: IVPB 0 ABX - CEFAZOLIN 0 Oral 0 1550 Output: Urine 0 1999 Other: Estimated Void Large # Voids 1 1 Assessment: Stable 77 y/o female s/p R KORY by Dr. Barraza 04/04/2018. Plan: - DVT prophylaxis- lovenox, coumadin 6mg tonight - U/S of calf bilateral ordered today - Continue bowel regimen for bowel movement - Continue PT/ OT - Follow up with Dr. Barraza within 10-14 days - H&H - stable
[2018-04-05] MEDS: Nystatin CREAM* 15 GM TUBE TOPICAL SCH ×2 (13:17→21:21)
[2018-04-05] MEDS: Enoxaparin(*) 40 MG/0.4 ML SYR SUBCUT SCH (13:17)
--- NOTE | 2018-04-05 13:18 | RAD ---
HISTORY: Bilateral calf tenderness COMPARISONS: June 02, 2008 TECHNIQUE: Multiple transverse and longitudinal ultrasound images were obtained of the bilateral lower extremities from the level of the common femoral vein inferiorly through to the infrapopliteal veins using grayscale, color Doppler, and spectral Doppler imaging with and without compression and with augmentation. FINDINGS: VEINS: The venous system of the bilateral lower extremities is compressible throughout its course, with normal flow on color Doppler imaging and normal response to augmentation on spectral Doppler imaging. SOFT TISSUES: Unremarkable. OTHER FINDINGS: None. IMPRESSION: NO RIGHT LOWER EXTREMITY DEEP VEIN THROMBOSIS. NO LEFT LOWER EXTREMITY DEEP VEIN THROMBOSIS
--- NOTE | 2018-04-05 14:55 | PN ---
Subjective Date of Service: 04/05/18 Interval History: c/o bilat lower leg pain with palpation, Denies chest pain or shortness of breath. denies abd pain n/v/d. Family History: Unchanged from Admission Social History: Unchanged from Admission Past Medical History: Unchanged from Admission Objective Active Medications: Acetaminophen (Tylenol Tab*) 650 mg PO Q4H PRN PRN Reason: PAIN OR TEMPERATURE Bisacodyl (Dulcolax Supp*) 10 mg [place] DAILY PRN PRN Reason: constipation Cyclobenzaprine HCl (Flexeril Tab*) 10 mg PO TID PRN PRN Reason: SPASMS Last Admin: 04/05/18 04:25 Dose: 10 mg Diphenhydramine HCl (Benadryl Iv*) 12.5 mg IV Q6H PRN PRN Reason: PRURITIS Docusate Sodium (Colace Cap*) 100 mg PO BID [facility] Last Admin: 04/05/18 08:58 Dose: 100 mg Enoxaparin Sodium (Lovenox(*)) 40 mg SUBCUT Q24H [facility] Last Admin: 04/05/18 13:17 Dose: 40 mg Lactated Ringer's (Lactated Ringers 1000 Ml Bag*) 1,000 mls @ 100 mls/hr IV PER RATE [facility] Last Admin: 04/04/18 03:34 Dose: 100 mls/hr Lactulose (Lactulose*) 30 ml PO Q6H PRN PRN Reason: constipation Magnesium Hydroxide (Milk Of Magnesia Liq*) 30 ml PO BID [facility] Last Admin: 04/05/18 08:57 Dose: 30 ml Magnesium Hydroxide (Milk Of Magnesia Liq*) 30 ml PO Q6H PRN PRN Reason: constipation Morphine Sulfate (Morphine Vial*) 2 mg IV Q2H PRN PRN Reason: PAIN Pto:Torsemide [ (Torsemide] 5 Mg Tab) 0.5 tab PO QAM [facility] Last Admin: 04/05/18 08:57 Dose: 0.5 tab Nystatin (Nystatin Cream*) 1 applic TOPICAL BID [facility] Last Admin: 04/05/18 13:17 Dose: Not Given Ondansetron HCl (Zofran 40 Mg Vial*) 4 mg IV Q6H PRN PRN Reason: nausea Ondansetron HCl (Zofran Tab*) 4 mg PO Q6H PRN PRN Reason: NAUSEA Oxycodone HCl (Roxycodone Tab*) 10 mg PO Q4H PRN PRN Reason: SEVERE PAIN Last Admin: 04/04/18 12:13 Dose: 10 mg Oxycodone/Acetaminophen (Percocet 5/325 Tab*) 2 tab PO Q4H PRN PRN Reason: PAIN Last Admin: 04/04/18 17:17 Dose: 2 tab Oxycodone/Acetaminophen (Percocet 5/325 Tab*) 1 tab PO Q4H PRN PRN Reason: PAIN Last Admin: 04/05/18 13:17 Dose: 1 tab Pharmacy Profile Note (Scopolamine Patch Remove*) 1 note PATCH OFF Q72H ONE Stop: 04/06/18 05:51 Pharmacy Profile Note (Coumadin Daily Reminder*) 1 note FOLLOW UP 1700 [facility] Last Admin: 04/04/18 19:58 Dose: 1 note Polyethylene Glycol/Electrolytes (Miralax*) 17 gm PO DAILY PRN PRN Reason: Constipation Ramipril (Altace Cap*) 20 mg PO QAM [facility] Last Admin: 04/05/18 08:58 Dose: 20 mg Simvastatin (Zocor(Nf)) 20 mg PO DAILY [facility] Last Admin: 04/04/18 21:38 Dose: 20 mg Vital Signs - 8 hr 04/05/18 04/05/18 04/05/18 06:51 08:57 13:17 Respiratory 16 16 16 Rate Oxygen Devices in Use Now: None Appearance: appars comfortable sitting in the chair, no acute distress Eyes: No Scleral Icterus Ears/Nose/Mouth/Throat: Clear Oropharnyx, Mucous Membranes Moist Neck: NL Appearance and Movements; NL JVP, Trachea Midline Respiratory: Symmetrical Chest Expansion and Respiratory Effort, Clear to Auscultation Cardiovascular: NL Sounds; No Murmurs; No JVD Abdominal: NL Sounds; No Tenderness; No Distention Extremities: No Clubbing, Cyanosis, - - dressing intact to right hip Skin: No Rash or Ulcers Neurological: Alert and Oriented x 3, NL Muscle Strength and Tone Nutrition: Taking PO's Result Diagrams: 04/06/18 05:19 04/04/18 05:14 Additional Lab and Data: Laboratory Results - last 24 hr 04/04/18 04/04/18 04/04/18 05:14 05:14 05:14 Hgb 9.4 L Hct 29 L Plt Count 193 MPV 9.4 INR (Anticoag Therapy) 0.95 Sodium 135 L Potassium 4.4 Chloride 106 Carbon Dioxide 27 Anion Gap 2 BUN 21 Creatinine 1.00 H Est GFR ( Amer) 69.3 Est GFR (Non-Af Amer) 53.9 BUN/Creatinine Ratio 21.0 H Glucose 133 H Calcium 9.1 Assess/Plan/Problems-Billing Assessment: 77 yo female PMH HTN, HLD, OA now s/p left total hip arthroplasty. - Patient Problems (1) Status post total hip replacement, left Current Visit: Yes Status: Acute Code(s): Z96.642 - PRESENCE OF LEFT ARTIFICIAL HIP JOINT SNOMED Code(s): 170327144685 Comment: pain control per ortho PT /Ot per orthpedics No further facial flushing DVT prop per ortho c/o bilat calf pain- venous ultrasounds negative (2) HTN (hypertension) Current Visit: Yes Status: Acute Code(s): I10 - ESSENTIAL (PRIMARY) HYPERTENSION SNOMED Code(s): 24852316 Comment: SBP- 111-151 continue torsemide and ramipril. (3) HLD (hyperlipidemia) Current Visit: Yes Status: Acute Code(s): E78.5 - HYPERLIPIDEMIA, UNSPECIFIED SNOMED Code(s): 07004417 Comment: continue simvastatin 20mg (4) DVT prophylaxis Current Visit: Yes Status: Acute Code(s): FEO2460 - SNOMED Code(s): 572243538 Comment: as per orthopedics (5) Full code status Current Visit: Yes Status: Acute Code(s): Z78.9 - OTHER SPECIFIED HEALTH STATUS SNOMED Code(s): 294792282 Status and Disposition: discharge when cleared by orthopedics
[2018-04-05] MEDS ORDERED: Warfarin TAB(*) 4 MG PO ONE (18:00)
[2018-04-05] MEDS: SIMVASTATIN 20 MG PO SCH ×2 (19:52→22:01)
[2018-04-06 05:45] LABS: Hematocrit 27 % (35-47); Hemoglobin 9.1 g/dl (12.0-16.0); Mean Platelet Volume 9.4 um3 (7.4-10.4); Platelet Count 196 10^3/ul (150-450)
[2018-04-06] MEDS ORDERED: Scopolamine PATCH Remove* 1 NOTE MISC PATCH OFF ONE (05:50)
[2018-04-06 05:52] LABS: INR 1.96 (0.77-1.02)
[2018-04-06] MEDS: oxyCODONE/Acetamin 5/325 MG* TAB PO PRN ×4 (06:14→21:34)
[2018-04-06] MEDS: Ramipril CAP* 10 MG PO SCH (08:30)
[2018-04-06] MEDS: TORSEMIDE 5 MG PO SCH (08:31)
[2018-04-06] MEDS: Docusate CAP* 100 MG PO SCH ×2 (08:31→19:48)
[2018-04-06] MEDS: Magnesium Hydroxide LIQ* 30 ML UDC PO SCH ×2 (08:31→19:21)
[2018-04-06] MEDS: Nystatin CREAM* 15 GM TUBE TOPICAL SCH ×2 (10:12→19:47)
[2018-04-06] MEDS: Enoxaparin(*) 40 MG/0.4 ML SYR SUBCUT SCH (12:13)
--- NOTE | 2018-04-06 13:18 | PN ---
Progress Note - Progress Note Date of Service: 04/06/18 SOAP: Subjective: Pt is doing well. Her pain is controlled with oral pain meds. Had BM. Denies CP, SOB, F/C, calf pain. Objective: PE: 77 y/o WDWN F NAD sitting in chair comfortably RLE- dressing changed inc c/d/i, calf soft NT, +DF/PF ankle, SILT distally Vital Signs Temp Pulse Resp BP Pulse Ox 97.9 F 92 16 144/67 98 04/06/18 11:08 04/06/18 11:08 04/06/18 12:13 04/06/18 11:08 04/06/18 11:08 Laboratory Results - last 24 hr 04/06/18 04/06/18 05:19 05:19 Hgb 9.1 L Hct 27 L Plt Count 196 MPV 9.4 INR (Anticoag Therapy) 1.96 H Assessment: Stable 77 y/o female s/p R KORY by Dr. Barraza 04/04/2018. Plan: - DVT prophylaxis- stop lovenox, coumadin 2 mg tonight - US bilat LE neg for DVT - Continue PT/ OT - Follow up with Dr. Barraza within 10-14 days post op -Plan DC to home with VNS 04/07 am
[2018-04-06] MEDS ORDERED: Warfarin TAB(*) 2 MG PO SCH (17:00)
--- NOTE | 2018-04-06 18:06 | PN ---
Subjective Date of Service: 04/06/18 Interval History: C/o mild pain to right hip, denies chest pain or shortness of breath. Denies and pain n/v/d Family History: Unchanged from Admission Social History: Unchanged from Admission Past Medical History: Unchanged from Admission Objective Active Medications: Acetaminophen (Tylenol Tab*) 650 mg PO Q4H PRN PRN Reason: PAIN OR TEMPERATURE Bisacodyl (Dulcolax Supp*) 10 mg [place] DAILY PRN PRN Reason: constipation Cyclobenzaprine HCl (Flexeril Tab*) 10 mg PO TID PRN PRN Reason: SPASMS Last Admin: 04/05/18 04:25 Dose: 10 mg Diphenhydramine HCl (Benadryl Iv*) 12.5 mg IV Q6H PRN PRN Reason: PRURITIS Docusate Sodium (Colace Cap*) 100 mg PO BID [facility] Last Admin: 04/06/18 08:31 Dose: 100 mg Lactated Ringer's (Lactated Ringers 1000 Ml Bag*) 1,000 mls @ 100 mls/hr IV PER RATE [facility] Last Admin: 04/04/18 03:34 Dose: 100 mls/hr Lactulose (Lactulose*) 30 ml PO Q6H PRN PRN Reason: constipation Magnesium Hydroxide (Milk Of Magnesia Liq*) 30 ml PO BID [facility] Last Admin: 04/06/18 08:31 Dose: Not Given Magnesium Hydroxide (Milk Of Magnesia Liq*) 30 ml PO Q6H PRN PRN Reason: constipation Morphine Sulfate (Morphine Vial*) 2 mg IV Q2H PRN PRN Reason: PAIN Pto:Torsemide [ (Torsemide] 5 Mg Tab) 0.5 tab PO QAM [facility] Last Admin: 04/06/18 08:31 Dose: 0.5 tab Nystatin (Nystatin Cream*) 1 applic TOPICAL BID [facility] Last Admin: 04/06/18 10:12 Dose: 1 applic Ondansetron HCl (Zofran 40 Mg Vial*) 4 mg IV Q6H PRN PRN Reason: nausea Ondansetron HCl (Zofran Tab*) 4 mg PO Q6H PRN PRN Reason: NAUSEA Oxycodone HCl (Roxycodone Tab*) 10 mg PO Q4H PRN PRN Reason: SEVERE PAIN Last Admin: 04/04/18 12:13 Dose: 10 mg Oxycodone/Acetaminophen (Percocet 5/325 Tab*) 2 tab PO Q4H PRN PRN Reason: PAIN Last Admin: 04/04/18 17:17 Dose: 2 tab Oxycodone/Acetaminophen (Percocet 5/325 Tab*) 1 tab PO Q4H PRN PRN Reason: PAIN Last Admin: 04/06/18 17:51 Dose: 1 tab Pharmacy Profile Note (Coumadin Daily Reminder*) 1 note FOLLOW UP 1700 [facility] Last Admin: 04/05/18 19:47 Dose: 1 note Polyethylene Glycol/Electrolytes (Miralax*) 17 gm PO DAILY PRN PRN Reason: Constipation Ramipril (Altace Cap*) 20 mg PO QAM [facility] Last Admin: 04/06/18 08:30 Dose: 20 mg Simvastatin (Zocor(Nf)) 20 mg PO 2100 [facility] Last Admin: 04/05/18 22:01 Dose: 20 mg Warfarin Sodium (Coumadin Tab(*)) 2 mg PO DAILY@1700 [facility] PRN Reason: Protocol Last Admin: 04/06/18 17:52 Dose: 2 mg Vital Signs - 8 hr 04/06/18 04/06/18 04/06/18 10:15 11:08 12:13 Temperature 97.9 F Pulse Rate 92 Respiratory 16 18 16 Rate Blood Pressure 144/67 (mmHg) O2 Sat by Pulse 98 Oximetry 04/06/18 04/06/18 14:12 17:51 Temperature Pulse Rate Respiratory 16 16 Rate Blood Pressure (mmHg) O2 Sat by Pulse Oximetry Oxygen Devices in Use Now: None Appearance: appears comfortable sitting in the chair Eyes: No Scleral Icterus Ears/Nose/Mouth/Throat: Clear Oropharnyx, Mucous Membranes Moist Neck: NL Appearance and Movements; NL JVP, Trachea Midline Respiratory: Symmetrical Chest Expansion and Respiratory Effort, Clear to Auscultation Cardiovascular: NL Sounds; No Murmurs; No JVD, RRR, No Edema Abdominal: NL Sounds; No Tenderness; No Distention Extremities: No Clubbing, Cyanosis, - - moderate amt of swelling noted to right hip, dressing dry and intact Skin: No Rash or Ulcers Neurological: Alert and Oriented x 3 Nutrition: Taking PO's Result Diagrams: 04/06/18 05:19 04/04/18 05:14 Additional Lab and Data: Laboratory Results - last 24 hr 04/04/18 04/04/18 04/04/18 05:14 05:14 05:14 Hgb 9.4 L Hct 29 L Plt Count 193 MPV 9.4 INR (Anticoag Therapy) 0.95 Sodium 135 L Potassium 4.4 Chloride 106 Carbon Dioxide 27 Anion Gap 2 BUN 21 Creatinine 1.00 H Est GFR ( Amer) 69.3 Est GFR (Non-Af Amer) 53.9 BUN/Creatinine Ratio 21.0 H Glucose 133 H Calcium 9.1 Assess/Plan/Problems-Billing Assessment: 77 yo female PMH HTN, HLD, OA now s/p left total hip arthroplasty. - Patient Problems (1) Status post total hip replacement, left Current Visit: Yes Status: Acute Code(s): Z96.642 - PRESENCE OF LEFT ARTIFICIAL HIP JOINT SNOMED Code(s): 383888871656 Comment: pain control per ortho PT /Ot per orthpedics No further facial flushing DVT prop per ortho c/o bilat calf pain- venous ultrasounds negative moderate amt of swelling noted to right hip , some ecchymosis (2) HTN (hypertension) Current Visit: Yes Status: Acute Code(s): I10 - ESSENTIAL (PRIMARY) HYPERTENSION SNOMED Code(s): 58263229 Comment: SBP-125-144 continue torsemide and ramipril. (3) HLD (hyperlipidemia) Current Visit: Yes Status: Acute Code(s): E78.5 - HYPERLIPIDEMIA, UNSPECIFIED SNOMED Code(s): 90841512 Comment: continue simvastatin 20mg (4) DVT prophylaxis Current Visit: Yes Status: Acute Code(s): QCD4329 - SNOMED Code(s): 036730172 Comment: as per orthopedics (5) Full code status Current Visit: Yes Status: Acute Code(s): Z78.9 - OTHER SPECIFIED HEALTH STATUS SNOMED Code(s): 176873922 Status and Disposition: discharge when cleared by orthopedics
[2018-04-06] MEDS: SIMVASTATIN 20 MG PO SCH (21:33)
[2018-04-06] MEDS: Cyclobenzaprine TAB* 10 MG PO PRN (23:27)
[2018-04-07] MEDS: oxyCODONE/Acetamin 5/325 MG* TAB PO PRN ×3 (03:43→12:34)
[2018-04-07 05:30] LABS: Hematocrit 26 % (35-47); Hemoglobin 8.8 g/dl (12.0-16.0); Mean Platelet Volume 9.5 um3 (7.4-10.4); Platelet Count 214 10^3/ul (150-450)
[2018-04-07 05:42] LABS: INR 2.31 (0.77-1.02)
[2018-04-07] MEDS: Cyclobenzaprine TAB* 10 MG PO PRN (08:05)
[2018-04-07] MEDS: Ramipril CAP* 10 MG PO SCH (08:05)
[2018-04-07] MEDS: TORSEMIDE 5 MG PO SCH (08:05)
[2018-04-07] MEDS: Docusate CAP* 100 MG PO SCH (08:05)
[2018-04-07] MEDS: Nystatin CREAM* 15 GM TUBE TOPICAL SCH (08:06)
[2018-04-07] MEDS: Magnesium Hydroxide LIQ* 30 ML UDC PO SCH (08:07)
[2018-04-07 13:52] VITALS: BP 122/55
--- NOTE | 2018-04-07 15:01 | PN ---
Progress Note - Progress Note Date of Service: 04/07/18 SOAP: Subjective: 77 y/o female s/p R KORY by Dr. Barraza 04/04/2018. Patient reports feeling fatigued, difficulty sleeping at night. VSS afebrile. Patient has family at home to help, commode and walker being delivered to home today. No questions re: surgery. Objective: General- Well appearing, NAD AO MSK- R LE Surgical dressing removed, incision d/c/i, minimal drainage noted proximal wound, dried on gauze, iminimal tendernesss, moderate ecchymosis surrounding wound site. redressed, + DF/PF, PT 2+, neg homans SITLT. Vital Signs Temp 98.2 F 04/07/18 11:36 Pulse 89 04/07/18 11:36 Resp 18 04/07/18 12:34 BP 122/55 04/07/18 11:36 Pulse Ox 100 04/07/18 13:30 Intake & Output 04/06/18 04/07/18 04/07/18 18:59 06:59 18:59 Intake Total 1100 520 460 Output Total 300 0 900 Balance 800 520 -440 Intake: Oral 1100 520 460 Output: Urine 300 0 900 Other: Estimated Void Medium Large Date of Last Bowel 04/06/18 Movement # Bowel Movements 1 0 Estimated Stool Amount Large # Voids 3 2 Assessment: Stable 77 y/o female s/p R KORY by Dr. Barraza 04/04/2018. Plan: - Coumadin for DVT prophylaxis, INR theraputic - Continue PT OT at home with home PT - WBAT - post-op abx- completed - Follow up with Dr. Barraza within 10 days Laboratory Results - last 24 hr 04/07/18 04/07/18 04:58 04:58 Hgb 8.8 L Hct 26 L Plt Count 214 MPV 9.5 INR (Anticoag Therapy) 2.31 H Acetaminophen (Tylenol Tab*) 650 mg PO Q4H PRN PRN Reason: PAIN OR TEMPERATURE Bisacodyl (Dulcolax Supp*) 10 mg [place] DAILY PRN PRN Reason: constipation Cyclobenzaprine HCl (Flexeril Tab*) 10 mg PO TID PRN PRN Reason: SPASMS Last Admin: 04/07/18 08:05 Dose: 10 mg Diphenhydramine HCl (Benadryl Iv*) 12.5 mg IV Q6H PRN PRN Reason: PRURITIS Docusate Sodium (Colace Cap*) 100 mg PO BID [facility] Last Admin: 04/07/18 08:05 Dose: 100 mg Lactated Ringer's (Lactated Ringers 1000 Ml Bag*) 1,000 mls @ 100 mls/hr IV PER RATE [facility] Last Admin: 04/04/18 03:34 Dose: 100 mls/hr Lactulose (Lactulose*) 30 ml PO Q6H PRN PRN Reason: constipation Magnesium Hydroxide (Milk Of Magnesia Liq*) 30 ml PO BID [facility] Last Admin: 04/07/18 08:07 Dose: Not Given Magnesium Hydroxide (Milk Of Magnesia Liq*) 30 ml PO Q6H PRN PRN Reason: constipation Morphine Sulfate (Morphine Vial*) 2 mg IV Q2H PRN PRN Reason: PAIN Pto:Torsemide [ (Torsemide] 5 Mg Tab) 0.5 tab PO QAM [facility] Last Admin: 04/07/18 08:05 Dose: 0.5 tab Nystatin (Nystatin Cream*) 1 applic TOPICAL BID [facility] Last Admin: 04/07/18 08:06 Dose: Not Given Ondansetron HCl (Zofran 40 Mg Vial*) 4 mg IV Q6H PRN PRN Reason: nausea Ondansetron HCl (Zofran Tab*) 4 mg PO Q6H PRN PRN Reason: NAUSEA Oxycodone HCl (Roxycodone Tab*) 10 mg PO Q4H PRN PRN Reason: SEVERE PAIN Last Admin: 04/04/18 12:13 Dose: 10 mg Oxycodone/Acetaminophen (Percocet 5/325 Tab*) 2 tab PO Q4H PRN PRN Reason: PAIN Last Admin: 04/04/18 17:17 Dose: 2 tab Oxycodone/Acetaminophen (Percocet 5/325 Tab*) 1 tab PO Q4H PRN PRN Reason: PAIN Last Admin: 04/07/18 12:34 Dose: 1 tab Pharmacy Profile Note (Coumadin Daily Reminder*) 1 note FOLLOW UP 1700 [facility] Last Admin: 04/06/18 18:06 Dose: 1 note Polyethylene Glycol/Electrolytes (Miralax*) 17 gm PO DAILY PRN PRN Reason: Constipation Ramipril (Altace Cap*) 20 mg PO QAM [facility] Last Admin: 04/07/18 08:05 Dose: 20 mg Simvastatin (Zocor(Nf)) 20 mg PO 2100 [facility] Last Admin: 04/06/18 21:33 Dose: 20 mg Warfarin Sodium (Coumadin Tab(*)) 2 mg PO DAILY@1700 [facility] PRN Reason: Protocol Last Admin: 04/06/18 17:52 Dose: 2 mg
--- NOTE | 2018-04-08 11:32 | DS ---
AMENDED REPORT NOW INCLUDES COSIGNER DESIGNATION - ESIGNED BEFORE ADJUSTMENTS DISCHARGE SUMMARY: DATE OF ADMISSION: 04/03/18 DATE OF DISCHARGE: 04/07/18 ATTENDING SURGEON: Dr. Barraza * (DICTATED BY ROME CONROY) CHIEF COMPLAINT: 1. Right hip pain. 2. Elevated cholesterol. 3. Hypertension. 4. Diet controlled diabetes. DISCHARGE DIAGNOSES: 1. Right total hip arthroplasty, uncomplicated. 2. Elevated cholesterol. 3. Hypertension. 4. Diet controlled diabetes. PROCEDURE: Right total hip arthroplasty. CONSULTATIONS: 1. Physical Therapy. 2. Occupational Therapy. 3. Medicine. BRIEF HISTORY: Mrs. Domingo is a pleasant 77-year-old female with the longstanding history of end-stage degenerative osteoarthritis of right hip. She has failed conservative treatment and elected to undergo a right total hip arthroplasty on 04/03/[address] Nitza Barraza. HOSPITAL COURSE: The patient was admitted to [facility] on 04/03/18 where she underwent an uncomplicated right total hip arthroplasty with an estimated blood loss of 300 cc. She recovered on the surgical short-stay unit. Her Jones was removed on postoperative day 2 and she was voiding on her own without difficulty. Her labs and vital signs remained stable. She was restarted on her home medications. The pain was controlled with p.o. Percocet and she underwent a venous Doppler study on 04/05/18 for bilateral calf tenderness which was negative for any deep vein thrombosis. She progressed well with physical therapy and occupational therapy. Her DVT prophylaxis was managed with Lovenox and Coumadin until she reached the therapeutic INR. By postoperative day 4, the patient was orthopedically and medically stable for discharge to go home with home services. PHYSICAL EXAMINATION: General: Well appearing, in no acute distress. Alert and oriented. Vital Signs: Temperature 98.2, pulse rate 89, respiratory rate 16, oxygenation is 100% on room air, blood pressure 122/65. Examination of the right lower extremity demonstrated surgical incision over the posterior aspect of the hip, which was benign without erythema or drainage. The sterile dressing was applied. The patient had a good dorsiflexion and planter flexion with +3 palpable posterior tibial pulses and sensation was grossly intact. The patient was able to arise from the chair without much difficulty. LABORATORY DATA: On date of discharge H and H of 8.8 and 26 with an INR of 2.31. DISCHARGE MEDICATIONS: 1. Coumadin 2 mg tablet p.o. daily at 5 p.m. per physician's instructions 2. Tylenol 650 mg p.o. q.4 hours p.r.n. for pain, not to exceed more than 4000 mg of Tylenol/acetaminophen a day. 3. Colace 100 mg p.o. b.i.d. 4. Oxycodone/acetaminophen 5/325 one to two tablets every 4 to 6 hours as needed for pain. 5. Ramipril 20 mg p.o. q.a.m. 6. Torsemide 0.5 mg p.o. q.a.m. 7. Vitamin D3 1000 international units p.o. q.a.m. CONDITION ON DISCHARGE: Stable. DISCHARGE INSTRUCTIONS: Mrs. Domingo is a very pleasant 77-year-old female status post right total hip arthroplasty, on postoperative day 4 who is medially and orthopedically stable for discharge to go home with VNS services. She will continue to do her home physical therapy and occupational therapy as shown. She will have visiting nurse services for INR draws on Saturday and . She will continue on Coumadin, however, we will hold her dose on , take 2 mg on on 04/08/18, 4 mg on 04/09/18 and have repeat INR checked on 04/10/18. She is to remain weightbearing as tolerated and take Colace up to 3 times a day for constipation and Percocet as needed for pain control. She will follow up with Dr. Barraza for incision check or suture removal within 10 days. She is instructed to go to the ER should she develop chest pain or shortness of breath. Should she develop fever, increasing pain, or redness, she is to call office immediately. ROME CONROY [id number]/[facility] #: [id number] MTDD
== END 2018-04-07 13:50 | disposition home health service (06) | DRG 470 ==
LOC: AA 04-03 10:25 → SSU 04-03 17:13
PROVIDERS: ADMIT Orthopaedic Surgery Adult Reconstructive Orthopaedic Surgery; ATTEND Orthopaedic Surgery Adult Reconstructive Orthopaedic Surgery
PROC: 0SR904A Replacement of Right Hip Joint with Ceramic on Polyethylene Synthetic Substitute, Uncemented, Open Approach (ICD-10-PCS; principal; 2018-04-04)
DX: M16.11 Unilateral primary osteoarthritis, right hip (principal); I10 Essential (primary) hypertension; E11.9 Type 2 diabetes mellitus without complications; M25.751 Osteophyte, right hip; E78.00 Pure hypercholesterolemia, unspecified; M17.11 Unilateral primary osteoarthritis, right knee; R14.3 Flatulence; Z98.42 Cataract extraction status, left eye; Z88.8 Allergy status to other drugs, medicaments and biological substances; Z72.89 Other problems related to lifestyle; Z83.3 Family history of diabetes mellitus; Z80.9 Family history of malignant neoplasm, unspecified; Z79.01 Long term (current) use of anticoagulants
CPT/HCPCS: 36415; 80048; 85014; 85018; 85049; 85610; 88304; 88311; 93970; A9270-GY; C1713; C1776; G8978-GP-CJ; G8979-GP-CI; G8987-GO-CK; G8988-GO-CI; G8988-GO-CJ; G8989-GO-CI; J0690; J1650; J1885; J2250; J2270; J2405; J2704; J2795; J3010; J8540